=== PATIENT | female | born 1955 | race Caucasian/White ===

== ENCOUNTER 2016-07-13 10:09 | Emergency (ER) | payer OTHER ==
[2016-07-13 10:18] VITALS: BP 128/73
--- NOTE | 2016-07-13 10:27 | ED ---
Throat Pain/Nasal Congestion - HPI Summary HPI Summary: right ear pain for a few days that and there is tenderness of the ear. - History of Current Complaint Chief Complaint: UCEar Time Seen by Provider: 07/13/16 10:19 Hx Obtained From: Patient Onset/Duration: Lasting Days Severity: Moderate Associated Signs And Symptoms: Positive: Negative - Allergies/Home Medications Allergies/Adverse Reactions: Allergies Allergy/AdvReac Type Severity Reaction Status Date / Time Sulfa Drugs Allergy Hives Verified 07/13/16 10:18 PMH/Surg Hx/FS Hx/Imm Hx Endocrine/Hematology History: Denies: Hx Diabetes - Cancer History Hx Radiation Therapy: No - Surgical History Surgery Procedure, Year, and Place: hysterectomy 2000, ear tube on left Infectious Disease History: No Infectious Disease History: Denies: Traveled Outside the [place] in Last 30 Days - Family History Known Family History: Negative: Diabetes - Social History Lives: With Family Alcohol Use: None Substance Use Type: Reports: None Smoking Status (MU): Never Smoked Tobacco Review of Systems All Other Systems Reviewed And Are Negative: Yes Physical Exam Triage Information Reviewed: Yes Vital Signs On Initial Exam: Initial Vitals Temp Pulse Resp BP Pulse Ox 97.9 F 80 16 128/73 99 07/13/16 10:13 07/13/16 10:13 07/13/16 10:13 07/13/16 10:13 07/13/16 10:13 Vital Signs Reviewed: Yes Appearance: Positive: Well-Appearing, Well-Nourished Skin: Positive: Warm Eyes: Positive: Normal ENT: Positive: Other - right tragal tenderness. no swelling or redness of the ear. TM is pearly white.. Negative: Nasal congestion, Nasal drainage Neck: Positive: Supple Respiratory/Lung Sounds: Positive: Clear to Auscultation Cardiovascular: Positive: Normal Abdomen Description: Positive: Nontender Musculoskeletal: Positive: Normal. Negative: Edema Left, Edema Right Neurological: Positive: Sensory/Motor Intact, Alert, Oriented to Person Place, Time Psychiatric: Positive: Normal Diagnostics - Vital Signs Vital Signs Temp Pulse Resp BP Pulse Ox 07/13/16 10:13 97.9 F 80 16 128/73 99 - Laboratory Lab Statement: Any lab studies that have been ordered have been reviewed, and results considered in the medical decision making process. EENT Course/Dx - Course Course Of Treatment: right oe. no signs of cellulitis extending outward. - Diagnoses Provider Diagnoses: Otitis externa of right ear Discharge - Discharge Plan Condition: Good Disposition: HOME
== END 2016-07-13 10:37 | disposition home or self-care (01) ==
LOC: UCCORT 10:09
DX: H60.91 Unspecified otitis externa, right ear (principal); Z88.2 Allergy status to sulfonamides
CPT/HCPCS: 99212; G0463

== ENCOUNTER 2016-07-15 08:30 | Emergency (ER) | payer OTHER ==
[2016-07-15 09:11] VITALS: BP 112/74
--- NOTE | 2016-07-15 09:44 | UC ---
Ear Complaint HPI - HPI Summary HPI Summary: 61 yo female with right ear pain which has worsened since her visit here 2 days ago decreased hearing - History of Current Complaint Chief Complaint: UCEar Stated Complaint: EAR PAIN Time Seen by Provider: 07/15/16 09:23 Hx Obtained From: Patient Hx Last Menstrual Period: 2000 Onset/Duration: Gradual Onset, Lasting Days Severity Initially: Mild Severity Currently: Severe Pain Intensity: 8 Pain Scale Used: 0-10 Numeric Alleviating Factors: Nothing Associated Signs/Symptoms: Positive: Swelling @ - Allergies/Home Medications Allergies/Adverse Reactions: Allergies Allergy/AdvReac Type Severity Reaction Status Date / Time Sulfa Drugs Allergy Hives Verified 07/15/16 09:01 Home Medications: Home Medications Ibuprofen TAB* [Advil TAB*] 400 mg PO Q6H PRN 07/15/16 [History Confirmed ] PMH/Surg Hx/FS Hx/Imm Hx Previously Healthy: Yes Endocrine History Of: Denies: Diabetes Cancer History Of: Denies: Breast Cancer - Surgical History Surgical History: Yes Surgery Procedure, Year, and Place: hysterectomy 2000, ear tube on left - Family History Known Family History: Positive: Hypertension Negative: Diabetes - Social History Alcohol Use: None Substance Use Type: None Smoking Status (MU): Never Smoked Tobacco - Immunization History Most Recent Influenza Vaccination: April 2016 Review of Systems Constitutional: Negative Skin: Negative Eyes: Negative ENT: Ear Ache Respiratory: Negative Cardiovascular: Negative Gastrointestinal: Negative Genitourinary: Negative Motor: Negative Neurovascular: Negative Musculoskeletal: Negative Neurological: Negative Psychological: Negative All Other Systems Reviewed And Are Negative: Yes Physical Exam Triage Information Reviewed: Yes Appearance: Well-Appearing, No Pain Distress, Well-Nourished Vital Signs: Initial Vital Signs Temp 97.7 F 07/15/16 09:00 Pulse 66 07/15/16 09:00 Resp 18 07/15/16 09:00 BP 112/74 07/15/16 09:00 Pulse Ox 99 07/15/16 09:00 Vital Signs Reviewed: Yes Eyes: Positive: Conjunctiva Clear ENT: Positive: TMs normal, Other: - swollen right RAC/tragal tendernes/auricle not red. Negative: Hearing grossly normal - decreased right, Nasal congestion, Nasal drainage Dental: Negative: Gross Decay/Caries @ Neck: Positive: Supple, Nontender, No Lymphadenopathy Respiratory: Positive: Lungs clear, Normal breath sounds, No respiratory distress Cardiovascular: Positive: RRR. Negative: Tachycardia, Bradycardia Musculoskeletal: Positive: Strength Intact, ROM Intact Neurological: Positive: Alert Psychological Exam: Normal Skin Exam: Normal Procedures - Procedure Summary Procedure Summary: Insertion of [place] ear wick in Right auditory canal Ear Complaint Course/Dx - Differential Dx/Diagnosis Provider Diagnoses: right otitis externa Discharge - Discharge Plan Condition: Stable Disposition: HOME Prescriptions: Cephalexin CAP* [Keflex CAP*] 500 mg PO QID #28 cap traMADol TAB* [Ultram*] 50 mg PO Q6HR PRN #12 tab MDD 4 PRN Reason: Pain Patient Education Materials: Otitis Externa (ED) Forms: *Work Release Referrals: Julianne Lester MD [Primary Care Provider] - 4 Days Additional Instructions: an ear wick was inserted continue ear drops don't take tramadol and drive or work you may continue ibuprofen
== END 2016-07-15 09:44 | disposition home or self-care (01) ==
LOC: UCCORT 08:30
DX: H60.91 Unspecified otitis externa, right ear (principal); Z88.2 Allergy status to sulfonamides
CPT/HCPCS: 99211; G0463

== ENCOUNTER 2017-03-29 13:55 | Emergency (ER) | payer OTHER ==
[2017-03-29 15:09] VITALS: BP 125/66
[2017-03-29] MEDS ORDERED: Ibuprofen TAB* 600 MG PO ONE (15:43)
--- NOTE | 2017-03-29 15:43 | UC ---
Ear Complaint HPI - History of Current Complaint Chief Complaint: UCEar Stated Complaint: LEFT EAR COMPLAINT Time Seen by Provider: 03/29/17 15:33 Hx Last Menstrual Period: 2000 - Allergies/Home Medications Allergies/Adverse Reactions: Allergies Allergy/AdvReac Type Severity Reaction Status Date / Time Sulfa Drugs Allergy Hives Verified 03/29/17 15:09 PMH/Surg Hx/FS Hx/Imm Hx - Surgical History Surgical History: Yes Surgery Procedure, Year, and Place: hysterectomy 2000, ear tube on left - Family History Known Family History: Positive: Hypertension Negative: Diabetes - Social History Alcohol Use: None Substance Use Type: None Smoking Status (MU): Never Smoked Tobacco - Immunization History Most Recent Influenza Vaccination: April 2016 Physical Exam Vital Signs: Initial Vital Signs Temp 97.9 F 03/29/17 15:05 Pulse 77 03/29/17 15:05 Resp 16 03/29/17 15:05 BP 125/66 03/29/17 15:05 Pulse Ox 100 03/29/17 15:05
--- NOTE | 2017-04-02 07:16 | UC ---
Progress - Progress Note Progress Note: + MRSA please stop keflex will ERX Clinda 3 x per day x 10 days follow up with your pcp if not better
== END 2017-03-29 15:56 | disposition home or self-care (01) ==
LOC: UCCORT 13:55
DX: H93.92 Unspecified disorder of left ear (principal); Z88.2 Allergy status to sulfonamides; A49.02 Methicillin resistant Staphylococcus aureus infection, unspecified site
CPT/HCPCS: 87070; 87077; 87186; 87205; 87640; 87641; 99212; A9270-GY; G0463

== ENCOUNTER 2017-10-03 18:16 | Emergency (ER) | payer OTHER ==
--- OUTSIDE RECORDS SUMMARY | 2017-10-03 18:27 | XMS REPORT ---
:1955 External Reference #:[id number] Author Organization [facility] 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 Julianne Lester MD Primary Care Physician Unavailable Payers Type Date Identification Numbers Payment Provider Subscriber Commercial Policy Number: [id number] Lifetime Benefit Nehemias [employer] PayID: [id number] [address] [place] [address] Commercial Expires: 2016 Policy Number: Lifetime Benefit Nehemias Hyman [id number] [employer] Number: [id number] [address] PayID: [place] [address] Problems Date Description Provider Status Onset: 08/11/2012 Impacted Dinorah Fontana PA Active Onset: 09/19/2015 Adult health examination Julianne Lester MD Active Onset: 09/19/2015 Hyperlipidemia Julianne Lester MD Active Onset: 09/19/2015 Type II diabetes mellitus Julianne Lester MD Active uncontrolled Onset: 09/19/2015 History of polyp of colon Julianne Lester MD Active Onset: 09/19/2015 Other hypertrophic disorders of the Julianne Lester MD Active skin Onset: 09/19/2015 Inflamed seborrheic keratosis Julianne Lester MD Active Onset: 09/10/2016 Kidney stone Julianne Lester MD Active Onset: 09/10/2016 H/O: fracture Julianne Lester MD Active Onset: 09/10/2016 Otalgia Julianne Lester MD Active Onset: 09/10/2016 Vitamin D deficiency Julianne Lester MD Active Onset: 09/10/2016 Ganglion of hand Julianne Lester MD Active Onset: 09/19/2015 Mixed hyperlipidemia Julianne Lester MD Active Onset: 09/19/2015 Pure hypercholesterolemia Julianne Lester MD Active Onset: 08/01/2017 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 Work Status Retired Work Status Part-Time Hand Dominance Left-handed Hobbies Gardening Hobbies Reading Cigarette Use Never Smoked Cigarettes ETOH Use Denies alcohol use Smoking Patient denies history of smoking Recreational Drug Use Denies Drug Use Daily Caffeine Consumes on average 2 cups of regular coffee per day Allergies, Adverse Reactions, Alerts Date Description Reaction Status Severity Comments 05/14/2014 Sulfa Drugs active hives 05/07/2014 NKDA inactive Medications Medication Date Status Form Strength Qnty SIG Indications Ordering Provider Simvastatin 09/18/ Active Tablets 20mg 24tabs 1 by mouth E78.5 2015 2x/week MD Trevon Vitamin D / Active Tablets 1000Unit 1 by mouth Unknown 0000 every day Diclofenac / Active Tablets ER 100mg 30tabs take 1 tablet Jonathan Sodium ER 0000 24HR once daily Pom[place], with food M.D. Dok / Active Capsules 100mg take 1 Unknown 0000 capsule once daily if needed for constipation Diclofenac 06/28/ Hx Tablets ER 100mg 30tabs 1 by mouth Jonathan Sodium ER 2017 - 24HR every day Pompo, 08/01/ with food M.D. 2017 Fortamet 01/28/ Hx Tablets ER 500mg 60tabs take one E11.65 2016 24HR tablet by rufino Lester 2x/day MD Ni 05/14/ Hx Tablets ER 1000mg 90tabs 1 tab by E11.65 2015 - 24HR mouth once a Trevon 01/28/ day 2016 Metformin HCL 02/05/ Hx Tablets ER 1000mg 90tabs 1 tab by E11.65 Julianne ER (Mod) 2016 - 24HR mouth each Trevon 05/14/ morning note 2016 new dose Metformin HCL 09/18/ Hx Tablets ER 500mg 90tabs 1 tab by E11.65 Julianne ER (Osm) 2015 - 24HR mouth each Trevon 02/05/ morning 2016 Prednisone 12/15/ Hx Tablets 20mg 4tabs 1 by mouth Dat 2015 - every day MD Francisco 2015 No Active 05/07/ Hx Unknown Medications 2013 - 2013 Vitamin / Hx Tablets 1000Unit 1 by mouth Unknown D-1000 0000 - every day bid Maximum 09/18/ 2015 Ibuprofen / Hx Tablets 600mg take 1 tablet Unknown 0000 - three times a day 2016 Medications Administered in Office Medication Date Status Form Strength Qnty SIG Indications Ordering Provider Depomedrol 80 Administered Injection Lindy SChristal cervantes 017 KARISHMA Brasher Immunizations CPT Code Status Date Vaccine Lot # [id number] Given 05/25/2013 Tdap injection Vital Signs Date Vital Result Comment 09/05/2017 BP Systolic 139 mmHg BP Diastolic 82 mmHg Body Temperature 97.9 F Heart Rate 74 /min Respiratory Rate 18 /min Height 64 inches 5'4" Weight 255.00 lb BMI (Body Mass Index) 43.8 kg/m2 BSA (Body Surface Area) 2.17 m2 [place] body weight in kilograms 54 O2 % BldC Oximetry 98 % Pain Level 2 Surgical site 08/12/2017 BP Systolic 122 mmHg BP Diastolic 76 mmHg Body Temperature 97.2 F Heart Rate 76 /min Height 64 inches 5'4" Weight 260.00 lb BMI (Body Mass Index) 44.6 kg/m2 BSA (Body Surface Area) 2.19 m2 [place] body weight in kilograms 54 O2 % BldC Oximetry 96 % 08/06/2017 BP Systolic Sitting Left Arm 134 mmHg BP Diastolic Sitting Left Arm 83 mmHg Heart Rate 94 /min Height 64 inches 5'4" Weight 256.00 lb BMI (Body Mass Index) 43.9 kg/m2 BSA (Body Surface Area) 2.17 m2 [place] body weight in kilograms 54 08/02/2017 BP Systolic 130 mmHg BP Diastolic 82 mmHg 08/02/2017 BP Systolic 175 mmHg Very anxious BP Diastolic 89 mmHg Very anxious Body Temperature 98.2 F Heart Rate 71 /min Respiratory Rate 18 /min Height 64 inches 5'4" [place] body weight in kilograms 54 O2 % BldC Oximetry 98 % Pain Level 0 08/01/2017 BP Systolic 138 mmHg BP Diastolic 87 mmHg Body Temperature 98.4 F Heart Rate 84 /min Respiratory Rate 16 /min Height 64 inches 5'4" Weight 256.12 lb BMI (Body Mass Index) 44.0 kg/m2 BSA (Body Surface Area) 2.17 m2 [place] body weight in kilograms 54 O2 % BldC Oximetry 99 % Pain Level 0 06/28/2017 BP Systolic Sitting Left Arm 135 mmHg BP Diastolic Sitting Left Arm 88 mmHg Heart Rate 74 /min Height 64 inches 5'4" Weight 260.00 lb BMI (Body Mass Index) 44.6 kg/m2 BSA (Body Surface Area) 2.19 m2 [place] body weight in kilograms 54 04/25/2017 BP Systolic Sitting Right Arm 125 mmHg BP Diastolic Sitting Right Arm 84 mmHg BP Systolic Sitting Resting Right Arm 140 mmHg BP Diastolic Sitting Resting Right Arm 82 mmHg Heart Rate 72 /min Height 64 inches 5'4" Weight 257.00 lb BMI (Body Mass Index) 44.1 kg/m2 BSA (Body Surface Area) 2.18 m2 [place] body weight in kilograms 54 09/10/2016 BP Systolic Sitting Left Arm 120 mmHg BP Diastolic Sitting Left Arm 76 mmHg Body Temperature 98.3 F Heart Rate 66 /min Respiratory Rate 12 /min Height 64 inches 5'4" Weight 253.00 lb BMI (Body Mass Index) 43.4 kg/m2 BSA (Body Surface Area) 2.16 m2 [place] body weight in kilograms 54 02/06/2016 BP Systolic Sitting Left Arm 118 mmHg BP Diastolic Sitting Left Arm 74 mmHg Height 64.5 inches 5'4.50" Weight 254.38 lb BMI (Body Mass Index) 43.0 kg/m2 BSA (Body Surface Area) 2.18 m2 [place] body weight in kilograms 56 11/02/2015 Height 64.5 inches 5'4.50" 09/19/2015 BP Systolic 114 mmHg BP Diastolic 73 mmHg Heart Rate 73 /min Respiratory Rate 20 /min Height 64.5 inches 5'4.50" Weight 254.25 lb BMI (Body Mass Index) 43.0 kg/m2 BSA (Body Surface Area) 2.18 m2 05/14/2014 BP Systolic Sitting Right Arm 120 mmHg BP Diastolic Sitting Right Arm 80 mmHg Heart Rate 65 /min Respiratory Rate 18 /min Height 64 inches 5'4" Weight 250.00 lb BMI (Body Mass Index) 42.9 kg/m2 BSA (Body Surface Area) 2.15 m2 Results Test Date Test Result H/L Range Note Complete Blood Count 08/29/2017 WBC Num Bld Auto 10.6 10*3/uL High 4-10 RBC Num Bld Auto 4.47 10*6/uL 4.1-5.3 Hgb Bld-mCnc 13.2 g/dL 11.5-15.5 Hct VFr Bld Auto 38.4 % 36-45 MCV RBC Auto 85.8 fL 80-96 MCH RBC Qn Auto 29.5 pg 27-33 MCHC RBC Auto-mCnc 34.4 g/dL 32.0-36.0 RDW RBC Auto-Rto 13.6 % 11.5-14.5 Platelet Num Bld Auto 247 10*3/uL 150-400 Laboratory test finding 08/29/2017 Magnesium 2.0 mg/dL 1.6-2.6 Phosphorus 3.5 mg/dL 2.7-4.5 Basic Metabolic Panel 08/29/2017 Hco3 Ser-sCnc 24 mmol/L 22-29 Chloride SerPl-sCnc 106 mmol/L 96-108 Creat SerPl-mCnc 0.63 mg/dL 0.4-1.1 Glucose SerPl-mCnc 120 mg/dL High 65-110 Potassium SerPl-sCnc 4.1 mmol/L 3.3-5.1 Sodium SerPl-sCnc 143 mmol/L 133-145 BUN SerPl-mCnc 19 mg/dL 8-23 Anion Gap3 SerPl-sCnc 13 mmol/L 8-15 Osmolality SerPl Calc 299 mosm/kg 275-300 Creat/Urea nit SerPl 30 Calcium SerPl-mCnc 8.1 mg/dL Low 8.8-10.2 GFR/Bsa pred.non black SerPl MDRD-ArVRat >90 mL/min/1.73m2 >60 GFR/Bsa pred.black SerPl MDRD-ArVRat >90 mL/min/1.73m2 >60 Basic Metabolic Panel 08/29/2017 Anion Gap 13 mmol/L 8 - 15 BUN/Cre Ratio 30 1 Bicarbonate 24 mmol/L 22 - 29 Blood Urea Nitrogen 19 mg/dL 8 - 23 Calcium 8.1 mg/dL Low 8.8 - 10.2 Chloride 106 mmol/L 96 - 108 Creatinine 0.63 mg/dL 0.4 - 1.1 GFR 2008 CKD-Epi >90 >60 mL/min/1.73m2 GFR Non 2008 CDK-Epi >90 >60 mL/min/1.73m2 Glucose 120 mg/dL High 65 - 110 Osmolality, Asif 299 mosm/kg 275 - 300 Potassium 4.1 mmol/L 3.3 - 5.1 Sodium 143 mmol/L 133 - 145 CBC 08/29/2017 Hematocrit 38.4 % 36 - 45 Hemoglobin 13.2 g/dL 11.5 - 15.5 Mean Cell Hemoglobin 29.5 pg 27 - 33 Mean Cell Hgb Conc 34.4 g/dL 32.0 - 36.0 Mean Cell Volume 85.8 fL 80 - 96 Platelet Count 247 10*3/uL 150 - 400 Red Blood Cell 4.47 10*6/uL 4.1 - 5.3 Red Cell Dist Width 13.6 % 11.5 - 14.5 White Blood Cell 10.6 10*3/uL High 4 - 10 Crossmatch, Pat 08/28/2017 Abo/RH(D) A Pos Blood Component Type Leukoreduced Red Cells Blood Component Type Leukoreduced Red Cells Crossmatch Expiration 08/30/2017 Crossmatch Result Compatible Crossmatch Result Compatible Status Of Unit Rel From Alloc Status Of Unit Rel From Alloc Transfusion Status Ok To Transfuse Transfusion Status Ok To Transfuse Unit Division 0 1 Unit Division 0 1 Unit Number [id number] Unit Number [id number] Pat Crossmatch 08/28/2017 Blood Bank Cmnt Patient-Imp 08/30/2017 Abo + Rh Bld A POS CBC and Differential 08/28/2017 Abs Basophil 0.08 10*3/uL 0 - 0.2 Abs Eosinophil 0.04 10*3/uL 0 - 0.5 Abs Lymphocyte 1.12 10*3/uL Low 1.2 - 4.0 Abs Monocyte 0.16 10*3/uL 0 - 0.8 Abs Neutrophil 8.80 10*3/uL High 1.8 - 7.0 Basophil 1 % 0 - 2 Differential Type Automated Diff Eosinophil 0 % 0 - 5 Hematocrit 42.5 % 36 - 45 Hemoglobin 14.5 g/dL 11.5 - 15.5 Lymphocyte 11 % Low 13 - 52 Mean Cell Hemoglobin 29.6 pg 27 - 33 Mean Cell Hgb Conc 34.0 g/dL 32.0 - 36.0 Mean Cell Volume 86.9 fL 80 - 96 Monocyte 2 % 0 - 11 Neutrophil 86 % High 33 - 73 Nucleated Red Blood Cells 0 /100{WBCs} 0 - 0 Platelet Count 279 10*3/uL 150 - 400 Red Blood Cell 4.89 10*6/uL 4.1 - 5.3 Red Cell Dist Width 13.6 % 11.5 - 14.5 White Blood Cell 10.2 10*3/uL High 4 - 10 Basic Metabolic Panel 08/28/2017 Anion Gap 13 mmol/L 8 - 15 BUN/Cre Ratio 34 1 Bicarbonate 24 mmol/L 22 - 29 Blood Urea Nitrogen 25 mg/dL High 8 - 23 Calcium 9.1 mg/dL 8.8 - 10.2 Chloride 102 mmol/L 98 - 107 Creatinine 0.74 mg/dL 0.4 - 1.0 GFR 2008 CKD-Epi >90 >60 mL/min/1.73m2 GFR Non 2008 CDK-Epi >90 >60 mL/min/1.73m2 Glucose 173 mg/dL High 70 - 140 Osmolality, Asif 297 mosm/kg 275 - 300 Potassium 4.3 mmol/L 3.5 - 5.1 Sodium 139 mmol/L 136 - 145 Laboratory test finding 08/28/2017 Magnesium 2.0 mg/dL 1.6-2.4 1 Phosphorus 3.5 mg/dL 2.5-4.5 1 Basic Metabolic Panel 08/28/2017 Hco3 Ser-sCnc 24 mmol/L 22-29 1 Chloride SerPl-sCnc 102 mmol/L 98-107 1 Creat SerPl-mCnc 0.74 mg/dL 0.4-1.0 1 Glucose SerPl-mCnc 173 mg/dL High 70-140 1 Potassium SerPl-sCnc 4.3 mmol/L 3.5-5.1 1 Sodium SerPl-sCnc 139 mmol/L 136-145 1 BUN SerPl-mCnc 25 mg/dL High 8-23 1 Anion Gap3 SerPl-sCnc 13 mmol/L 8-15 1 Osmolality SerPl Calc 297 mosm/kg 275-300 1 Creat/Urea nit SerPl 34 1 Calcium SerPl-mCnc 9.1 mg/dL 8.8-10.2 1 GFR/Bsa pred.non black SerPl MDRD-ArVRat >90 mL/min/1.73m2 >60 1 GFR/Bsa pred.black SerPl MDRD-ArVRat >90 mL/min/1.73m2 >60 1 CBC + Diff, Plat Count 08/28/2017 WBC Num Bld Auto 10.2 10*3/uL High 4-10 1, 2 RBC Num Bld Auto 4.89 10*6/uL 4.1-5.3 1 Hgb Bld-mCnc 14.5 g/dL 11.5-15.5 1 Hct VFr Bld Auto 42.5 % 36-45 1 MCV RBC Auto 86.9 fL 80-96 1 MCH RBC Qn Auto 29.6 pg 27-33 1 MCHC RBC Auto-mCnc 34.0 g/dL 32.0-36.0 1 RDW RBC Auto-Rto 13.6 % 11.5-14.5 1 Platelet Num Bld Auto 279 10*3/uL 150-400 1 Differential method Bld Automated Diff 1 Neutrophils/leuk NFr Bld Auto 86 % High 33-73 1 Lymphocytes/leuk NFr Bld Auto 11 % Low 13-52 1 Monocytes/leuk NFr Bld Auto 2 % 0-11 1 Eosinophil/leuk NFr Bld Auto 0 % 0-5 1 Basophils/leuk NFr Bld Auto 1 % 0-2 1 Neutrophils Num Bld Auto 8.80 10*3/uL High 1.8-7.0 1 Lymphocytes Num Bld Auto 1.12 10*3/uL Low 1.2-4.0 1 Monocytes Num Bld Auto 0.16 10*3/uL 0-0.8 1 Eosinophil Num Bld Auto 0.04 10*3/uL 0-0.5 1 Basophils Num Bld Auto 0.08 10*3/uL 0-0.2 1 nRBC/100 WBC Bld Auto-Rto 0 /100{WBCs} 0-0 1 Poct glucose, docked 08/28/2017 Poc Glucose 170 mg/dL High 70 - 105 Laboratory test 08/28/2017 Glucose Poc 170 mg/dL High 70-105 finding Surgical Tissue 08/28/2017 Surgical Pathology Surgical Patholo 3 <SEE NOTE> Type And Screen 08/16/2017 Abo + Rh Bld A POS 4 Bld gp Ab Scn SerPl Ql NEG 4 Comprehensive Metabolic Panel 08/02/2017 Glucose 106 mg/dL 74-106 5 BUN 23 mg/dL High 7-18 5 Creatinine 0.7 mg/dL 0.6-1.3 5 Glom Filtration Rate, Estimate >60 mL/min >60 5 If >60 mL/min >60 5, 6 BUN/Creat 32.8 ratio 5 Sodium 139 mmol/L 136-145 5 Potassium 4.1 mmol/L 3.5-5.1 5 Chloride 105 mmol/L 98-107 5 Carbon Dioxide 26 mmol/L 21-32 5 Anion Gap 8 mEq/L 8-16 5 Calcium 9.4 mg/dL 8.5-10.1 5 Total Protein 7.9 g/dL 6.4-8.2 5 Albumin 3.9 g/dL 3.4-5.0 5 Globulin 4.0 g/dL 1.9-4.3 5 Alb/Glob 1.0 ratio 5 Bilirubin,Total 0.6 mg/dL 0.2-1.0 5 Sgot/Ast 24 U/L 15-37 5 SGPT/Alt 43 U/L 12-78 5 Alkaline Phosphatase 102 U/L 45-117 5 CBS W/Automated Diff 08/02/2017 White Blood Count 7.7 K/uL 3.1-10.7 5 Red Blood Count 5.10 M/uL 3.90-5.40 5 Hemoglobin 14.8 gm/dL 11.6-15.8 5 Hematocrit 43.8 % 36.0-46.1 5 Mean Cell Volume 85.9 fl 80.9-99.0 5 Mean Corpuscular HGB 29.0 pg 25.9-32.7 5 Mean Corpuscular HGB Conc 33.8 g/dL 30.8-34.3 5 Platelet Count 336 K/uL 155-360 5 Red Cell Distri Width SD 41.2 fl 3-47 5 Red Cell Distri Width %CV 13.4 % 11.7-14.4 5 Mean Platelet Volume 8.9 fL 8.9-12.4 5 Neut% 62.9 % 40.4-72.8 5 Lymph % 29.4 % 20.0-42.0 5 [place] % 5.7 % 4.3-13.2 5 Eo% 1.7 % 0.0-6.6 5 Bas% 0.3 % 0.0-1.1 5 Neut# 4.84 K/uL 1.8-7.0 5 Lymph # 2.26 K/uL 1.0-4.0 5 [place] # 0.44 K/uL 0.3-0.9 5 Eos # 0.13 K/uL 0.0-0.5 5 Baso # 0.02 K/uL 0.0-0.1 5 Anticoagulant Therapy? NO 5 Protime 08/02/2017 Protime 13.2 seconds 12.0-14.4 5 Inr 1.0 0.9-1.1 5, 7 Anticoagulant Therapy? NO 5 Act Partial Thrombo Time 08/02/2017 Act Partial Thrombo 31.4 seconds 23.4 -35.0 5 Time Anticoagulant Therapy? NO 5 Laboratory test finding 03/29/2017 Ear Culture/Gram stain SEE RESULT BELOW 8, 9 MRSA/S. aureus Ssti PCR SEE RESULT BELOW 8, 10 CBS W/Automated Diff 10/05/2016 White Blood Count 7.6 K/uL 3.1-10.7 11 Red Blood Count 5.13 M/uL 3.90-5.40 11 Hemoglobin 14.8 gm/dL 11.6-15.8 11 Hematocrit 44.7 % 36.0-46.1 11 Mean Cell Volume 87.1 fl 80.9-99.0 11 Mean Corpuscular HGB 28.8 pg 25.9-32.7 11 Mean Corpuscular HGB Conc 33.1 g/dL 30.8-34.3 11 Platelet Count 313 K/uL 150-400 11 Red Cell Distri Width SD 43.0 fl 3-47 11 Red Cell Distri Width %CV 13.6 % 11.7-14.4 11 Mean Platelet Volume 9.2 fL 8.9-12.4 11 Neut% 61.9 % 40.4-72.8 11 Lymph % 30.3 % 20.0-42.0 11 [place] % 4.5 % 4.3-13.2 11 Eo% 2.8 % 0.0-6.6 11 Bas% 0.5 % 0.0-1.1 11 Neut# 4.67 K/uL 1.8-7.0 11 Lymph # 2.29 K/uL 1.0-4.0 11 [place] # 0.34 K/uL 0.3-0.9 11 Eos # 0.21 K/uL 0.0-0.5 11 Baso # 0.04 K/uL 0.0-0.1 11 Glycohemoglobin A1c 10/05/2016 Glycohemoglobin (A1c) 6.4 % High 4.2-6.3 11, 12 eAG 137 mg/dL 11 Comprehensive Metabolic Panel 10/05/2016 Glucose 101 mg/dL 74-106 11 BUN 25 mg/dL High 7-18 11 Creatinine 0.7 mg/dL 0.6-1.3 11 Glom Filtration Rate, Estimate >60 mL/min >60 11 If >60 mL/min >60 11, 13 BUN/Creat 35.7 ratio 11 Sodium 141 mmol/L 136-145 11 Potassium 4.3 mmol/L 3.5-5.1 11 Chloride 106 mmol/L 98-107 11 Carbon Dioxide 26 mmol/L 21-32 11 Anion Gap 9 mEq/L 8-16 11 Calcium 9.2 mg/dL 8.5-10.1 11 Total Protein 7.8 g/dL 6.4-8.2 11 Albumin 4.1 g/dL 3.4-5.0 11 Globulin 3.7 g/dL 1.9-4.3 11 Alb/Glob 1.1 ratio 11 Bilirubin,Total 0.5 mg/dL 0.2-1.0 11 Sgot/Ast 11 U/L Low 15-37 11, 14 SGPT/Alt 25 U/L 12-78 11 Alkaline Phosphatase 95 U/L 45-117 11 Microalb/Creat Ratio,Random 10/05/2016 Microalbumin,Urine 17.7 mg/L < 20.0 11 Microalbumin/Creatinine Ratio 16.2 ug/mgCrt < 30.0 11 Urine Creatinine Conc 109 mg/dL 11 LDL Cholesterol Profile 10/05/2016 Cholesterol 215 mg/dL High <200 11 , 15 Triglycerides 101 mg/dL <150 11, 16 HDL Cholesterol 49 mg/dL >40 11, 17 LDL-Cholesterol 146 mg/dL < 100 11, 18 Laboratory test 10/05/2016 Vitamin D,25-Hydroxy 26.6 ng/mL Low 30.0-100.0 11, 19 finding Glycohemoglobin A1c 02/02/2016 Glycohemoglobin 6.6 % High 4.2-6.3 20 (A1c) eAG 143 mg/dL LDL Cholesterol Profile 02/02/2016 Cholesterol 176 mg/dL <200 21 Triglycerides 101 mg/dL <150 22 HDL Cholesterol 39 mg/dL Low >40 23 LDL-Cholesterol 117 mg/dL < 100 24 Glycohemoglobin A1c 09/05/2015 Glycohemoglobin (A1c) 6.7 % High 4.2-6.3 25 eAG 146 mg/dL Laboratory test finding 09/05/2015 Vitamin D,25-Hydroxy 26.5 ng/mL Low 30.0-100.0 26 Comprehensive Metabolic 09/05/2015 Glucose 114 mg/dL High 74-106 Panel BUN 18 mg/dL 7-18 Creatinine 0.6 mg/dL 0.6-1.3 Glom Filtration Rate, Estimate >60 mL/min >60 If >60 mL/min >60 27 BUN/Creat 30.0 ratio Sodium 139 mmol/L 136-145 Potassium 4.2 mmol/L 3.5-5.1 Chloride 107 mmol/L 98-107 Carbon Dioxide 24 mmol/L 21-32 Anion Gap 8 mEq/L 8-16 Calcium 8.7 mg/dL 8.5-10.1 Total Protein 7.3 g/dL 6.4-8.2 Albumin 3.7 g/dL 3.4-5.0 Globulin 3.6 g/dL 1.9-4.3 Alb/Glob 1.0 ratio Bilirubin,Total 0.5 mg/dL 0.2-1.0 Sgot/Ast 14 U/L Low 15-37 28 SGPT/Alt 29 U/L 12-78 Alkaline Phosphatase 90 U/L 45-117 CBC W/Automated Diff 09/05/2015 White Blood Count 7.9 K/uL 3.1-10.7 Red Blood Count 5.13 M/uL 3.90-5.40 Hemoglobin 14.6 gm/dL 11.6-15.8 Hematocrit 44.2 % 36.0-46.1 Mean Cell Volume 86.2 fl 80.9-99.0 Mean Corpuscular HGB 28.5 pg 25.9-32.7 Mean Corpuscular HGB Conc 33.0 g/dL 30.8-34.3 Platelet Count 281 K/uL 155-360 Red Cell Distri Width SD 41.5 fl 3-47 Red Cell Distri Width %CV 13.5 % 11.7-14.4 Mean Platelet Volume 9.1 fL 8.9-12.4 Neut% 62.9 % 40.4-72.8 Lymph % 28.2 % 17.0-46.1 [place] % 6.1 % 4.3-13.2 Eo% 2.4 % 0.0-6.6 Bas% 0.4 % 0.0-1.1 Neut# 4.94 K/uL 1.8-7.0 Lymph # 2.22 K/uL 1.8-7.0 [place] # 0.48 K/uL 0.3-0.9 Eos # 0.19 K/uL 0.0-0.5 Baso # 0.03 K/uL 0.0-0.1 LDL Cholesterol Profile 09/05/2015 Cholesterol 201 mg/dL High <200 29 Triglycerides 123 mg/dL <150 30 HDL Cholesterol 40 mg/dL >40 31 LDL-Cholesterol 136 mg/dL < 100 32 1 PHONE OR 2 Called to and read back by NATE ARMSTRONG AT 5E AT [id number] AT 1314 BY 1590 3 Surgical Pathology Report Name: NEHEMIAS GLOVER Collection Date: 08/28/2017 00:00 Received Date: 08/28/2017 13:25 Physician(s): CARLOS CHUN MAHMOUD Specimen(s) Received A: Left renal mass Clinical History Left renal mass. Diagnosis KIDNEY, LEFT, PARTIAL NEPHRECTOMY: RENAL CELL CARCINOMA. (See microscopic description) TYPE: Clear cell type. SIZE : 2.2 x 1.5 cm. WHO/ISUP GRADE: 1. NECROSIS: Not identified. SARCOMATOID DIFFERENTIATION: Not identified. RHABDOID DIFFERENTIATION: Not identified. LYMPH/VASCULAR INVASION: Not identified. EXTENSION INTO PERINEPHRIC FAT: Not identified. SOFT TISSUE MARGIN: Negative. RENAL PARENCHYMAL MARGIN: Negative. pT1a Nx /kmc Farhan Reina MD Electronically Signed By Evelyn Lee M.D., Attending Pathologist 08/30/2017 17:08:08 The attending pathologist named above attests that he/she has personally reviewed the relevant preparation(s) for the specimen, performed microscopic examination when indicated, and rendered the final diagnosis. Gross Description The specimen is received in formalin labeled with the patient's name "Nehemias Glover" and "left renal mass". It consists of a 12.2 gram, 3.4 x 2.8 x 1.2 cm wedge of kidney with a moderate amount of attached adipose tissue. The renal capsule is hamilton-pink, smooth and glistening and strips with ease. The margin is inked blue. The cut surface reveals a 2.2 x 1.5 x 1.2 cm multilocular, smooth walled cystic space, which contains yellow serous fluid. The cyst wall averages less than 0.1 cm in thickness and extends to within 0.2 cm of the closest blue inked margin and to within 0.1 cm of the overlying renal capsule, but does not grossly appear to be involving it. The remaining cut surface is hamilton-brown, glistening unremarkable renal parenchyma with no definitive medullary structures grossly identified. The specimen is sectioned and international account representative sections are submitted in four cassettes. TB/sparkle Microscopic Description Section show a multilocular cystic neoplasm with low-grade nuclei. There is no necrosis or sarcomatoid differentiation identified. The findings raises the possibility of "multilocular cystic renal neoplasm of low malignant potential". 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 This report may include one or more immunohistochemical stain results that use analyte specific reagents. All positive and negative controls have been reviewed by the attending pathologist and are satisfactory. The tests were developed and their performance characteristics determined by [facility] Pathology department. They have not been cleared or approved by the [place] Food and Drug Administration. The FDA has determined that such clearance or approval is not necessary. 4 DOS 08/28 5 D41.02 6 Note: Persistent reduction for 3 months or more in an eGFR <60 mL/min/1.73 m2 defines CKD. Patients with eGFR values >/=60 mL/min/1.73 m2 may also have CKD if evidence of persistent proteinuria is present. The original MDRD equation for estimated GFR is not valid for patients less than 18 years of age. Additional information may be found at www.kdoqi.org. 7 THERAPEUTIC INR RANGE: 2.0 - 3.0 DVT, Pulmonary embolus, prophylaxis against venous thrombosis or systemic embolization in high risk patients. 2.5 - 3.5 Mechanical heart valves 8 [id number] SEE RESULT BELOW Name: NEHEMIAS GLOVER Boogie : [address]: Yovany Badillo DO Acct: [id number] Unit: [id number] AGE: 61 Location: [facility] Re03/29/17 SEX: F Status: DEP ER SPEC: [id number] PABLO: 03/29/17-1542 [facility] DR: Marilia New NP REQ: [id number] RECD: 03/29/17-2002 STATUS: RES OT DR: Julianne Badillo DO _ SOURCE: EAR SPDESC: ORDERED: EAR Cult/GS COMMENTS: [id number] Procedure Result Reported Site Ear Culture PENDING Ear Gram Stain Final 03/30/17- 0742 ML 1+ Epithelial Cells No Neutrophils Observed 1+ Gram Positive Cocci 1+ Gram Positive Bacilli , resembling diptheroids 1+ Yeast * ML - MAIN LAB ([facility]) . END OF REPORT * ML=Testing performed at Main Lab DEPARTMENT OF PATHOLOGY, [address] [place] [address] Izaiah Walker M.D. Director [facility] # [id number] 10 SEE RESULT BELOW Name: NHEEMIAS GLOVER : [address]: Yovany Badillo DO Acct: [id number] Unit: [id number] AGE: 61 Location: [facility] Re03/29/17 SEX: F Status: DEP ER SPEC: [id number] PABLO: 03/29/17-15[address] [facility] [address]: Marilia New NP REQ: [id number] RECD: 03/29/17 STATUS: ALBERT PHILLIPS DR: Julianne Badillo DO _ SOURCE: EAR SPDESC: ORDERED: MRSA/SA SSTI, EAR Cult/GS COMMENTS: [id number] MRSA POSITIVE: Verbal to [id number] ([facility]) by [id number] at 0907 on 03/30/17. Results read back accurately. Procedure Result Reported Site MRSA/S. aureus SSTI PCR Final 03/30/17- 0903 ML Organism 1 MRSA POSITIVE Organism 2 S.AUREUS POSITIVE Ear Culture Final 04/01/17- 1104 ML Organism 1 MRSA Quantity 1+ Organism 2 NORMAL KATRINA Quantity 2+ 1. MRSA M.I.C. RX --------- ------ Penicillin >=0.5 R Clindamycin <=0.25 S Erythromycin >=8 R Gentamicin <=0.5 S Linezolid 2 S Nitrofurantoin <=16 S Oxacillin >=4 R * Quinupristin/Dalfopristin <=0.25 S Rifampin <=0.5 S Tetracycline <=1 S Doxycycline - Deduced S CONTINUED ON NEXT PAGE * ML=Testing performed at Main Lab DEPARTMENT OF PATHOLOGY, [address] [place] [address] Izaiah Walker M.D. Director [facility] # [id number] Patient: NEHEMIAS GLOVER [id number] (Continued) Specimen: [id number] Collected: 03/29/17-1541 Received: 03/29/17-2002 (Continued) Procedure Result Reported Site Ear Culture Final (continued) 04/01/17- 1104 1. MRSA (continued) M.I.C. RX --------- ------ * Minocycline - Deduced S Trimethoprim/Sulfamethoxazole <=10 S Vancomycin <=0.5 S Imipenem-Deduced R * Ampicillin/Sulbactam-Deduced R Cefazolin-Deduced R * These antibiotics are not available in the [facility] Formulary Contact the Microbiology Department for any additional antibiotic reporting. Ear Gram Stain Final 03/30/17- 42 ML 1+ Epithelial Cells No Neutrophils Observed 1+ Gram Positive Cocci 1+ Gram Positive Bacilli , resembling diptheroids 1+ Yeast * ML - MAIN LAB ([facility]) . END OF REPORT * ML=Testing performed at Main Lab DEPARTMENT OF PATHOLOGY, [address] [place] [address] Izaiah Walker M.D. Director [facility] # [id number] 11 E11.65 E78.5 E55.9 Z13.0 12 Elevated levels of HbA1c suggest the need for more aggressive treatment of glycemia. The [place] [employer] recommends that a primary goal of therapy should be a HbA1c of <7% and that physicians should re-evaluate the treatment regimen in patients with HbA1c values consistently >8%. 13 Note: Persistent reduction for 3 months or more in an eGFR <60 mL/min/1.73 m2 defines CKD. Patients with eGFR values >/=60 mL/min/1.73 m2 may also have CKD if evidence of persistent proteinuria is present. The original MDRD equation for estimated GFR is not valid for patients less than 18 years of age. Additional information may be found at www.kdoqi.org. 14 Values below the stated reference ranges of AST and ALT can be seen in normal populations. Clinical correlation is suggested. 15 Reference Guidelines*: Desirable: ........... < 200 mg/dL Borderline High: ..... 200-239 mg/dL High: ................ >=240 mg/dL * The National Cholesterol Education Program (NCEP) 16 Reference Guidelines*: Normal: ............. < 150 mg/dL Borderline High: .... 150-199 mg/dL High: ............... 200-499 mg/dL Very High: .......... > 500 mg/dL * Source: National Cholesterol Education Program (NCEP) 17 Reference Guidelines*: Low HDL: ..... < 40 mg/dL Normal: ..... 40-60 mg/dL Desirable: ... > 60 mg/dL *The National Cholesterol Education Program(NCEP) 18 Reference Guidelines*: Optimal:........... <100 mg/dL Near Optimal....... 100-129 mg/dL Borderline High.... 130-159 mg/dL High............... 160-189 mg/dL Very High.......... >=190 mg/dL * Source: National Cholesterol Education Program (NCEP) 19 Vitamin D deficiency has been defined by the [place] [employer] and an Endocrine Society practice guideline as a level of serum 25-OH vitamin D less than 20 ng/mL (1,2). The Endocrine Society went on to further define vitamin D insufficiency as a level between 21 and 29 ng/mL (2). 1. IOM ([place] [employer]). 2010. Dietary reference intakes for calcium and D. [place]: The National Academies Press. 2. Hung MF, Kana ABBASI, Petrona ALVARADO, et al. Evaluation, treatment, and prevention of vitamin D deficiency: an Endocrine Society clinical practice guideline. JCEM. 2010; 96(7):1911-30. Performed at: RN - [facility] [address] [id number] [employer] Specialist: Karine Guo MD, Phone: [phone] 20 Elevated levels of HbA1c suggest the need for more aggressive treatment of glycemia. The [place] Diabetes Association recommends that a primary goal of therapy should be a HbA1c of <7% and that physicians should re-evaluate the treatment regimen in patients with HbA1c values consistently >8%. 21 Reference Guidelines*: Desirable: ........... < 200 mg/dL Borderline High: ..... 200-239 mg/dL High: ................ >=240 mg/dL * The National Cholesterol Education Program (NCEP) 22 Reference Guidelines*: Normal: ............. < 150 mg/dL Borderline High: .... 150-199 mg/dL High: ............... 200-499 mg/dL Very High: .......... > 500 mg/dL * Source: National Cholesterol Education Program (NCEP) 23 Reference Guidelines*: Low HDL: ..... < 40 mg/dL Normal: ..... 40-60 mg/dL Desirable: ... > 60 mg/dL *The National Cholesterol Education Program(NCEP) 24 Reference Guidelines*: Optimal:........... <100 mg/dL Near Optimal....... 100-129 mg/dL Borderline High.... 130-159 mg/dL High............... 160-189 mg/dL Very High.......... >=190 mg/dL * Source: National Cholesterol Education Program (NCEP) 25 Elevated levels of HbA1c suggest the need for more aggressive treatment of glycemia. The [place] Diabetes Association recommends that a primary goal of therapy should be a HbA1c of <7% and that physicians should re-evaluate the treatment regimen in patients with HbA1c values consistently >8%. 26 Vitamin D deficiency has been defined by the [place] [employer] and an Endocrine Society practice guideline as a level of serum 25-OH vitamin D less than 20 ng/mL (1,2). The Endocrine Society went on to further define vitamin D insufficiency as a level between 21 and 29 ng/mL (2). 1. IOM ([place] [employer]). 2010. Dietary reference intakes for calcium and D. [place]: The National Academies Press. 2. Hung MF, Kana [place], Petrona ALVARADO, et al. Evaluation, treatment, and prevention of vitamin D deficiency: an Endocrine Society clinical practice guideline. JCEM. 2010; 96(7):1911-30. Performed at: RN - [facility] [address] [id number] [employer] Specialist: Karine Guo MD, Phone: [phone] 27 Note: Persistent reduction for 3 months or more in an eGFR <60 mL/min/1.73 m2 defines CKD. Patients with eGFR values >/=60 mL/min/1.73 m2 may also have CKD if evidence of persistent proteinuria is present. The original MDRD equation for estimated GFR is not valid for patients less than 18 years of age. Additional information may be found at www.kdoqi.org. 28 Values below the stated reference ranges of AST and ALT can be seen in normal populations. Clinical correlation is suggested. 29 Reference Guidelines*: Desirable: ........... < 200 mg/dL Borderline High: ..... 200-239 mg/dL High: ................ >=240 mg/dL * The National Cholesterol Education Program (NCEP) 30 Reference Guidelines*: Normal: ............. < 150 mg/dL Borderline High: .... 150-199 mg/dL High: ............... 200-499 mg/dL Very High: .......... > 500 mg/dL * Source: National Cholesterol Education Program (NCEP) 31 Reference Guidelines*: Low HDL: ..... < 40 mg/dL Normal: ..... 40-60 mg/dL Desirable: ... > 60 mg/dL *The National Cholesterol Education Program(NCEP) 32 Reference Guidelines*: Optimal:........... <100 mg/dL Near Optimal....... 100-129 mg/dL Borderline High.... 130-159 mg/dL High............... 160-189 mg/dL Very High.......... >=190 mg/dL * Source: National Cholesterol Education Program (NCEP) Procedures Date CPT Code Description Status Comment 06/28/201757658 Asp./Injection major joint Completed 03/05/2017 Mammogram Completed 08/13/201666972 Asp./Injection major joint Completed 02/28/2016 Mammogram Completed 01/06/2016 Mammogram Completed 01/06/2016 Bone Mineral Density Test Completed 09/19/2015 01213 Remove Impact Cerumen Completed Irrigati 09/19/2015 04118 Removal Skin Tags/Multi To 15 Completed 05/14/2014 78229 EKG-Tracing And Report Completed 05/07/2014 34704 ECHO Transthoracic Inc Completed Performance Continuous Electrocardio 05/07/2014 00846 Holter Monitor 24HR Completed Inter/Report 05/05/2014 46863 Echocardiogram Complete Completed 11/13/2012 55828 EKG Interpretation And Report Completed Only 07/08/2011 Colonoscopy Completed hyperplastic polyp; originally told q 5 yrs, last time Dr. Herrera said wait 5 more years , based on latest recommendations.. Occ. c/o blood toilet when straining 09/10/2008 56230 Radiology, Wrist Two Views Completed 12/08/2007 66299 Stress Test Physician Super Completed Only 12/08/2007 85824 Stress Test Interpre And Completed Report Only 12/06/2007 01956 EKG Interpretation And Report Completed Only Encounters Type Date Location Provider CPT E/M Dx Office Visit 08/12/2017 4:00p [place] [address] Z01.818 D41.02 E11.65 E78.5 N20.0 Office Visit 08/06/2017 4:15p Orthopaedic Office Lindy Brasher, 56595 M25.511 RPAC M75.31 Office Visit 08/02/2017 1:30p Urology Carlos Chun M.D. 74056 D41.02 N20.0 Office Visit 08/01/2017 8:30a Urology Carlos Chun M.D. 84062 N20.0 D41.02 Office Visit 06/28/2017 8:30a Orthopaedic Office Lindy Brasher, 99453 M25.511 RPAC M75.31 Office Visit 04/25/2017 9:45a [place] [address] E11.65 E78.5 H92.09 E55.9 Office Visit 09/10/2016 3:00p [place] [address] Z00.01 M67.442 E78.5 E11.65 N20.0 Z87.81 H92.09 E55.9 Office Visit 02/06/2016 4:00p [place] [address] E11.65 E78.5 Z86.010 Office Visit 09/19/2015 3:00p [place] [address] Z00.00 E78.5 E11.65 Z86.010 L91.8 H61.21 L82.0 Office Visit 05/14/2014 3:05p [place] [address] 786.50 427.60 785.1 Office Visit 05/06/2014 10:59a [place] [address] 786.50 785.1 Office Visit 09/10/2008 11:30a [place] [address] 813.44 E885.9 E849.0 Plan of Care Future Appointment(s):12/03/2017 4:00 pm - Carlos Chun M.D. 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 Doing well postoperatively. We'll plan to see her back in 3 months for follow-up and repeat a CT scan in 6 months.
[2017-10-03 18:36] VITALS: BP 136/76
--- NOTE | 2017-10-03 18:47 | UC ---
Ear Complaint HPI - HPI Summary HPI Summary: 62 year old female with ear concern. tubes put in ear 04/23. Left ear feels full and clogged. She thinks that the tube may have fallen out. She has decreased hearing in both ears. no fever. [ End ] - History of Current Complaint Chief Complaint: UCEar Stated Complaint: EAR(S) Time Seen by Provider: 10/03/17 18:44 Hx Obtained From: Patient Hx Last Menstrual Period: 2000 Onset/Duration: Gradual Onset Severity Initially: Moderate Severity Currently: Mild Pain Intensity: 0 Associated Signs/Symptoms: Positive: Hearing Loss - Allergies/Home Medications Allergies/Adverse Reactions: Allergies Allergy/AdvReac Type Severity Reaction Status Date / Time Sulfa (Sulfonamide Allergy Hives Verified 10/03/17 18:36 Antibiotics) Home Medications: Home Medications NK [No Home Medications Reported] 10/03/17 [History Confirmed 10/03/17] PMH/Surg Hx/FS Hx/Imm Hx Previously Healthy: Yes - Surgical History Surgical History: Yes Surgery Procedure, Year, and Place: hysterectomy 2000,. ear tube on left, Both ears tubes 04/23. Cyst removal left kidney - cancer - Family History Known Family History: Positive: Hypertension Negative: Diabetes - Social History Occupation: Employed Full-time Alcohol Use: None Substance Use Type: None Smoking Status (MU): Never Smoked Tobacco - Immunization History Most Recent Influenza Vaccination: April 2016 Review of Systems ENT: Ear Ache Is Patient Immunocompromised?: No All Other Systems Reviewed And Are Negative: Yes Physical Exam Triage Information Reviewed: Yes Appearance: Well-Appearing, No Pain Distress, Well-Nourished Vital Signs: Initial Vital Signs Temp 98.7 F 10/03/17 18:27 Pulse 81 10/03/17 18:27 Resp 14 10/03/17 18:27 BP 136/76 10/03/17 18:27 Pulse Ox 98 10/03/17 18:27 Vital Signs Reviewed: Yes Eye Exam: Normal ENT: Positive: Pharynx normal, TM dull - B/L WITH TUBE IN EAR. RIGHT IN PLACE . LEFT TUBE APPEARS more superficial but in ear still b/l effusion. no injection. no erythema. no purulence. Neck exam: Normal Respiratory Exam: Normal Cardiovascular Exam: Normal Musculoskeletal Exam: Normal Neurological Exam: Normal Psychological Exam: Normal Ear Complaint Course/Dx - Course Course Of Treatment: left ear has tube in canal but appers to be coming out and her hearing concern in that ear -- no infection noted. no swelling of ear canal. call florentino tomorrow for f/u - Differential Dx/Diagnosis Differential Diagnosis/HQI/PQRI: Mastoiditis, Otitis Externa, Otitis Media, Perforated TM, URI Provider Diagnoses: B/L ear effusion with ear tube in place Discharge - Sign-Out/Discharge Documenting (check all that apply): Discharge - Discharge Plan Condition: Good Disposition: HOME Patient Education Materials: Myringotomy with P.E. Tubes (DC) Referrals: Julianne Lester MD [Primary Care Provider] - 4 Days Additional Instructions: PLEASE CALL YOUR ENT DR ELLER TOMORROW FOR FOLLOW UP - Billing Disposition and Condition Condition: GOOD Disposition: HOME
== END 2017-10-03 19:04 | disposition home or self-care (01) ==
LOC: UCCORT 18:16
DX: H93.8X3 Other specified disorders of ear, bilateral (principal); Z96.29 Presence of other otological and audiological implants; Z88.2 Allergy status to sulfonamides
CPT/HCPCS: 99211; G0463

== ENCOUNTER 2018-10-10 11:27 | Emergency (ER) | payer OTHER ==
--- OUTSIDE RECORDS SUMMARY | 2018-10-10 11:47 | XMS REPORT | Continuity of Care Document ---
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 Active Onset: 02/03/2018 Other seborrheic keratosis Julianne Lester MD Active Family History Date Family Member(s) Observation Comments General Non Contributory Father due to Accident, Tree Fell On Him () - 65 Mother Heart Disease 90 Mother due to Natural Causes () Children 2 First Daughter Peptic Ulcers First Daughter No Current Problems Second Daughter IBS Second Daughter No Current Problems Siblings 1 First Sister Hypertension First Sister Hypercholesterolemia First Sister Anxiety Social History Type Date Description Comments Sex Unknown Education Highest level completed, 12th grade Marital Status since age 41 Lives With Alone Home Environment Lives Alone Diet Healthy, Well Balanced Pets 1 cat Pets 1 dog 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 Hand Dominance Left-handed Hobbies Gardening Hobbies Reading Hobbies walking; taking care of [place] Tobacco Use Start: Unknown Never Smoked Cigarettes Smokeless Tobacco Never Used Smokeless Tobacco ETOH Use Denies alcohol use Tobacco Use Start: Unknown Patient denies history of smoking Recreational Drug Use Denies Drug Use Smoking Status Reviewed: 09/10/18 Patient denies history of smoking Allergies, Adverse Reactions, Alerts Date Description Reaction Status Severity Comments 05/14/2014 Sulfa Drugs Active hives 05/07/2014 NKDA Inactive Medications Medication Date Status Form Strength Qnty SIG Indications Ordering Provider Metformin HCL 01/28/20 Active Tablets 500mg 90tab take one tab E11.65 Trevon, 18 s by mouth with MD Julianne supper Simvastatin 09/19/19 Active Tablets 20mg 36tab 1 by mouth E78.5 Trevon , 16 s 3x/week MD Julianne Vitamin D Active Tablets 2000Unit 2 by mouth Unknown 00 daily. Macrobid 03/20/20 Hx Capsules 100mg 14cap 1 tab by Jarret 18 - s [facility] for 7 M.D. 18 days Citroma 02/14/20 Hx Solution 1.745GM/3 296ml drink 1 [email or web address] Thrasher 18 - 0ML bottle at , [place], 03/18/20 12pm 18 (noon)the day before the procedure Dulcolax 02/14/20 Hx Tablets 5mg 4tabs 4 tablets Z86.010 Price 18 - DR taken a 8pm , [place], 04/21/20 the day 18 before the procedure Moviprep 02/14/20 Hx Solution 100gm 1unit as directed Deni Thrasher 18 - Rec s , [place], 04/21/20 18 Vitamin B-12 02/04/20 Hx Tablets 5000mcg 1 by mouth Trevon 18 - Sub every day MD Julianne 02/04/20 18 Vitamin D3 02/04/20 Hx Capsules 5000Unit 1 by mouth rTevon 18 - every day MD Julianne 09/11/19 19 Diclofenac 06/28/20 Hx Tablets 100mg 30tab 1 by mouth Pompo, Sodium ER 17 - ER 24HR s every day Jonathan, 08/01/19 with food M.D. 18 Fortamet 01/29/20 Hx Tablets 500mg 60tab take one E11.65 Trevon 17 - ER 24HR s tablet by MD Julianne Unknown mouth 2x/day Fortamet 05/14/20 Hx Tablets 1000mg 90tab 1 tab by E11.Sherly Lester 16 - ER 24HR s mouth once a MD Julianne 01/29/20 day 17 Metformin HCL 02/06/20 Hx Tablets 1000mg 90tab 1 tab by E11.65 LOKI Lester (Mod) 16 - ER 24HR s mouth at MD Julianne 01/28/20 supper 18 Metformin HCL 09/19/19 Hx Tablets 500mg 90tab 1 tab by E11.65 LOKI Lester (Osm) 16 - ER 24HR s mouth each MD Julianne 02/06/20 morning 16 Prednisone 12/16/19 Hx Tablets 20mg 4tabs 1 by mouth Daugherty, 15 - every day MD Francisco 09/19/19 16 No Active 05/07/20 Hx Unknown Medications 14 - 05/14/20 14 Vitamin Hx Tablets 1000Unit 1 by mouth Unknown D-1000 00 - every day bid Maximum 09/19/19 Strength 16 Vitamin D Hx Tablets 1000Unit 1 by mouth Unknown 00 - every day 02/04/20 18 Ibuprofen Hx Tablets 600mg take 1 tablet Unknown 00 - three times a 06/28/20 day 17 Diclofenac Hx Tablets 100mg 30tab take 1 tablet Pompo, Sodium ER 00 - ER 24HR s once daily Jonathan, 12/04/19 with food M.D. 18 Dok Hx Capsules 100mg take 1 Unknown 00 - capsule once 12/04/19 daily if 18 needed for constipation Medications Administered in Office Medication Date Status Form Strength Qnty SIG Indications Ordering Provider Methylprednisolone 06/28 Administered Injection Sameera Lindy (Depomedrol) 80mg S., [facility] injection Immunizations CPT Code Status Date Vaccine Lot # [id number] Given 05/25/2013 Tdap injection Vital Signs Date Vital Result Comment 09/10/2018 6:00pm BP Systolic Sitting Left Arm 124 mmHg BP Diastolic Sitting Left Arm 78 mmHg Heart Rate 88 /min Respiratory Rate 18 /min Height 64.5 inches 5'4.50" Weight 257.00 lb BMI (Body Mass Index) 43.4 kg/m2 BSA (Body Surface Area) 2.19 m2 Mountain body weight in kilograms 56 kg 07/29/2018 4:00pm BP Systolic 150 mmHg BP Diastolic 86 mmHg Body Temperature 96.9 F Tympanic Heart Rate 84 /min Respiratory Rate 16 /min Weight 261.25 lb O2 % BldC Oximetry 98 % Pain Level 0 04/21/2018 4:27pm BP Systolic 150 mmHg BP Diastolic 90 mmHg 04/21/2018 4:10pm BP Systolic 167 mmHg BP Diastolic 97 mmHg 04/21/2018 3:54pm BP Systolic 174 mmHg BP Diastolic 96 mmHg Body Temperature 98.0 F Heart Rate 81 /min Respiratory Rate 18 /min Height 64.5 inches 5'4.50" Weight 254.00 lb BMI (Body Mass Index) 42.9 kg/m2 BSA (Body Surface Area) 2.18 m2 Mountain body weight in kilograms 56 kg O2 % BldC Oximetry 98 % Pain Level 5 surgical soreness 03/18/2018 4:27pm BP Systolic 159 mmHg 139/85 w lg cuff BP Diastolic 89 mmHg 139/85 w lg cuff Body Temperature 98.5 F Heart Rate 83 /min Respiratory Rate 14 /min Height 64.5 inches 5'4.50" Weight 253.38 lb BMI (Body Mass Index) 42.8 kg/m2 BSA (Body Surface Area) 2.17 m2 Mountain body weight in kilograms 56 kg O2 % BldC Oximetry 97 % Pain Level 0 02/13/2018 9:18am BP Systolic Sitting Left Arm 130 mmHg BP Diastolic Sitting Left Arm 84 mmHg Heart Rate 74 /min Respiratory Rate 18 /min Height 64.5 inches 5'4.50" Weight 255.00 lb BMI (Body Mass Index) 43.1 kg/m2 BSA (Body Surface Area) 2.18 m2 Mountain body weight in kilograms 56 kg 02/03/2018 8:55am BP Systolic 120 mmHg BP Diastolic 78 mmHg Heart Rate 80 /min Respiratory Rate 18 /min Height 64.5 inches 5'4.50" Weight 255.00 lb BMI (Body Mass Index) 43.1 kg/m2 BSA (Body Surface Area) 2.18 m2 Mountain body weight in kilograms 56 kg O2 % BldC Oximetry 98 % 12/03/2017 3:59pm BP Systolic 143 mmHg BP Diastolic 82 mmHg Body Temperature 99.7 F Heart Rate 81 /min Respiratory Rate 16 /min Height 64 inches 5'4" Weight 255.38 lb BMI (Body Mass Index) 43.8 kg/m2 BSA (Body Surface Area) 2.17 m2 Mountain body weight in kilograms 54 kg O2 % BldC Oximetry 96 % Pain Level 0 09/05/2017 3:35pm BP Systolic 139 mmHg BP Diastolic 82 mmHg Body Temperature 97.9 F Heart Rate 74 /min Respiratory Rate 18 /min Height 64 inches 5'4" Weight 255.00 lb BMI (Body Mass Index) 43.8 kg/m2 BSA (Body Surface Area) 2.17 m2 Mountain body weight in kilograms 54 kg O2 % BldC Oximetry 98 % Pain Level 2 Surgical site 08/12/2017 4:20pm BP Systolic 122 mmHg BP Diastolic 76 mmHg Body Temperature 97.2 F Heart Rate 76 /min Height 64 inches 5'4" Weight 260.00 lb BMI (Body Mass Index) 44.6 kg/m2 BSA (Body Surface Area) 2.19 m2 Mountain body weight in kilograms 54 kg O2 % BldC Oximetry 96 % 08/06/2017 4:30pm BP Systolic Sitting Left Arm 134 mmHg BP Diastolic Sitting Left Arm 83 mmHg Heart Rate 94 /min Height 64 inches 5'4" Weight 256.00 lb BMI (Body Mass Index) 43.9 kg/m2 BSA (Body Surface Area) 2.17 m2 Mountain body weight in kilograms 54 kg 08/02/2017 2:20pm BP Systolic 130 mmHg BP Diastolic 82 mmHg 08/02/2017 1:27pm BP Systolic 175 mmHg Very anxious BP Diastolic 89 mmHg Very anxious Body Temperature 98.2 F Heart Rate 71 /min Respiratory Rate 18 /min Height 64 inches 5'4" Mountain body weight in kilograms 54 kg O2 % BldC Oximetry 98 % Pain Level 0 08/01/2017 8:22am BP Systolic 138 mmHg BP Diastolic 87 mmHg Body Temperature 98.4 F Heart Rate 84 /min Respiratory Rate 16 /min Height 64 inches 5'4" Weight 256.12 lb BMI (Body Mass Index) 44.0 kg/m2 BSA (Body Surface Area) 2.17 m2 Mountain body weight in kilograms 54 kg O2 % BldC Oximetry 99 % Pain Level 0 06/28/2017 8:56am BP Systolic Sitting Left Arm 135 mmHg BP Diastolic Sitting Left Arm 88 mmHg Heart Rate 74 /min Height 64 inches 5'4" Weight 260.00 lb BMI (Body Mass Index) 44.6 kg/m2 BSA (Body Surface Area) 2.19 m2 Mountain body weight in kilograms 54 kg 04/25/2017 10:02am BP Systolic Sitting Right Arm 125 mmHg BP Diastolic Sitting Right Arm 84 mmHg BP Systolic Sitting Resting Right Arm 140 mmHg BP Diastolic Sitting Resting Right Arm 82 mmHg Heart Rate 72 /min Height 64 inches 5'4" Weight 257.00 lb BMI (Body Mass Index) 44.1 kg/m2 BSA (Body Surface Area) 2.18 m2 Mountain body weight in kilograms 54 kg 09/10/2016 2:54pm BP Systolic Sitting Left Arm 120 mmHg BP Diastolic Sitting Left Arm 76 mmHg Body Temperature 98.3 F Heart Rate 66 /min Respiratory Rate 12 /min Height 64 inches 5'4" Weight 253.00 lb BMI (Body Mass Index) 43.4 kg/m2 BSA (Body Surface Area) 2.16 m2 Mountain body weight in kilograms 54 kg 02/06/2016 4:56pm BP Systolic Sitting Left Arm 118 mmHg BP Diastolic Sitting Left Arm 74 mmHg Height 64.5 inches 5'4.50" Weight 254.38 lb BMI (Body Mass Index) 43.0 kg/m2 BSA (Body Surface Area) 2.18 m2 Mountain body weight in kilograms 56 kg 11/02/2015 4:15pm Height 64.5 inches 5'4.50" 09/19/2015 3:13pm BP Systolic 114 mmHg BP Diastolic 73 mmHg Heart Rate 73 /min Respiratory Rate 20 /min Height 64.5 inches 5'4.50" Weight 254.25 lb BMI (Body Mass Index) 43.0 kg/m2 BSA (Body Surface Area) 2.18 m2 05/14/2014 3:48pm BP Systolic Sitting Right Arm 120 mmHg BP Diastolic Sitting Right Arm 80 mmHg Heart Rate 65 /min Respiratory Rate 18 /min Height 64 inches 5'4" Weight 250.00 lb BMI (Body Mass Index) 42.9 kg/m2 BSA (Body Surface Area) 2.15 m2 Results Test Date Facility Test Result H/L Range Note Urine Dipstick 09/10/2018 [facility]a Leuko - Negative Ua Nitrite - Negative Ua Urobilinogen .2 0.2 - 1.0 E.U./dL Ua Protein - Negative Ua PH 5 Low 6.5-7.5 Ua Blood - Negative Ua Specific [place] 1.020 1.010-1.030 Ua Ketones SMALL Negative Ua Bilirubin - Negative Ua Glucose - Negative CBC W/Automated Diff 08/28/2018 [facility] White Blood 7.9 K/uL N 3.1-10.[address] [place] [address] [phone] Red Blood Count 4.71 M/uL N 3.90-5.40 Hemoglobin 13.4 gm/dL N 11.6-15.8 Hematocrit 41.1 % N 36.0-46.1 Mean Cell Volume 87.3 fl N 80.9-99.0 Mean Corpuscular HGB 28.5 pg N 25.9-32.7 Mean Corpuscular HGB Conc 32.6 g/dL N 30.8-34.3 Platelet Count 246 K/uL N 155-360 Red Cell Distri Width SD 41.7 fl N 36-47 Red Cell Distri Width %CV 13.5 % N 11.7-14.4 Mean Platelet Volume 8.9 fL N 8.9-12.4 Neut% 67.5 % N 40.4-72.8 Lymph % 23.3 % N 20.0-42.0 Rogers % 7.1 % N 4.3-13.2 Eo% 1.8 % N 0.0-6.6 Bas% 0.3 % N 0.0-1.1 Neut# 5.37 K/uL N 1.8-7.0 Lymph # 1.85 K/uL N 1.0-4.0 Rogers # 0.56 K/uL N 0.3-0.9 Eos # 0.14 K/uL N 0.0-0.5 Baso # 0.02 K/uL N 0.0-0.1 Basic Metabolic Panel 08/28/2018 [facility] Glucose 135 mg/dL High 74-[address] [place] [address] [phone] BUN 22 mg/dL High 7-18 Creatinine 0.7 mg/dL N 0.6-1.3 Glom Filtration Rate, Estimate >60 mL/min >60 If >60 mL/min >60 2 BUN/Creat 31.4 ratio Sodium 139 mmol/L N 136-145 Potassium 3.7 mmol/L N 3.5-5.1 Chloride 108 mmol/L High 98-107 Carbon Dioxide 23 mmol/L N 21-32 Anion Gap 8 mEq/L N 8-16 Calcium 8.5 mg/dL N 8.5-10.1 Blood Culture 08/27/2018 [facility] Blood Culture NO GROWTH: FINAL [address] Aerobic <SEE NOTE> [place] [address] [phone] Blood Culture Anaerobic NO GROWTH: FINAL <SEE NOTE> 4 Blood Culture 08/27/2018 [facility] Blood Culture NO GROWTH: FINAL [address] Aerobic <SEE NOTE> [place] [address] [phone] Blood Culture Anaerobic NO GROWTH: FINAL <SEE NOTE> 6 Ua RFX Micro & Culture 08/27/2018 [facility] Urine Color YELLOW Yellow [address] [place] [address] [phone] Urine Clarity CLEAR Clear Urine Glucose - Dipstick NEGATIVE mg/dL Negative Urine Bilirubin - Dipstick NEGATIVE Negative Urine Ketone NEGATIVE mg/dL Negative Urine Specific [place] 1.025 N 1.010-1.030 Urine Blood TRACE Negative Urine PH 6.0 Low 6.5-7.5 Urine Protein - Dipstick NEGATIVE mg/dL Negative Urine Urobilinogen - Dipstick 0.2 E.U./dL N 0.2-1.0 Urine Nitrite - Dipstick NEGATIVE Negative Urine Leuk Esterase NEGATIVE Negative Source: URINE, CLEAN CAT <SEE NOTE> 8 Complete Blood Count 04/17/2018 [facility] WBC Num Bld Auto 11.1 10*3/uL High 4-10 RBC Num Bld Auto 4.30 10*6/uL 4.1-5.3 Hgb Bld-mCnc 12.4 g/dL 11.5-15.5 Hct VFr Bld Auto 37.4 % 36-45 MCV RBC Auto 86.9 fL 80-96 MCH RBC Qn Auto 28.7 pg 27-33 MCHC RBC Auto-mCnc 33.0 g/dL 32.0-36.0 RDW RBC Auto-Rto 13.6 % 11.5-14.5 Platelet Num Bld Auto 238 10*3/uL 150-400 Basic Metabolic Panel 04/17/2018 [facility] Hco3 Ser-sCnc 22 mmol/L 22 -29 Chloride SerPl-sCnc 108 mmol/L High 98-107 Creat SerPl-mCnc 0.99 mg/dL 0.4-1.0 Glucose SerPl-mCnc 114 mg/dL 70-140 Potassium SerPl-sCnc 3.8 mmol/L 3.5-5.1 Sodium SerPl-sCnc 140 mmol/L 136-145 BUN SerPl-mCnc 20 mg/dL 8-23 Anion Gap3 SerPl-sCnc 10 mmol/L 8-15 Osmolality SerPl Calc 293 mosm/kg 275-300 Creat/Urea nit SerPl 20 Calcium SerPl-mCnc 8.2 mg/dL Low 8.8-10.2 GFR/Bsa pred.non black SerPl MDRD-ArVRat 60 mL/min/1.73m2 Low >60 GFR/Bsa pred.black SerPl MDRD-ArVRat 70 mL/min/1.73m2 >60 Laboratory test 04/16/2018 [facility] Glucose Poc 127 mg/dL High 70- 105 finding Laboratory test 04/16/2018 [facility] Glucose Poc 118 mg/dL High 70- 105 finding Complete Blood 04/16/2018 [facility] WBC Num Bld 14.7 10*3/uL High 4- 10 Count Auto RBC Num Bld Auto 4.74 10*6/uL 4.1-5.3 Hgb Bld-mCnc 13.6 g/dL 11.5-15.5 Hct VFr Bld Auto 40.9 % 36-45 MCV RBC Auto 86.2 fL 80-96 MCH RBC Qn Auto 28.7 pg 27-33 MCHC RBC Auto-mCnc 33.2 g/dL 32.0-36.0 RDW RBC Auto-Rto 13.3 % 11.5-14.5 Platelet Num Bld Auto 272 10*3/uL 150-400 Basic Metabolic Panel 04/16/2018 [facility] Hco3 Ser-sCnc 21 mmol/L Low 22-29 Chloride SerPl-sCnc 105 mmol/L 98-107 Creat SerPl-mCnc 0.65 mg/dL 0.4-1.0 Glucose SerPl-mCnc 129 mg/dL 70-140 Potassium SerPl-sCnc 4.5 mmol/L 3.5-5.1 Sodium SerPl-sCnc 139 mmol/L 136-145 BUN SerPl-mCnc 15 mg/dL 8-23 Anion Gap3 SerPl-sCnc 13 mmol/L 8-15 Osmolality SerPl Calc 291 mosm/kg 275-300 Creat/Urea nit SerPl 23 Calcium SerPl-mCnc 8.7 mg/dL Low 8.8-10.2 GFR/Bsa pred.non black SerPl MDRD-ArVRat >90 mL/min/1.73m2 >60 GFR/Bsa pred.black SerPl MDRD-ArVRat >90 mL/min/1.73m2 >60 Laboratory test finding 04/16/2018 [facility] Magnesium 2.0 mg/dL 1.6- 2.4 Phosphorus 3.4 mg/dL 2.5-4.5 Laboratory test 04/15/2018 [facility] Glucose Poc 163 mg/dL High 70- 105 finding Laboratory test 04/15/2018 [facility] Glucose Poc 125 mg/dL High 70- 105 finding Complete Blood 04/15/2018 [facility] WBC Num Bld 14.5 10*3/uL High 4- 10 Count Auto RBC Num Bld Auto 5.17 10*6/uL 4.1-5.3 Hgb Bld-mCnc 15.0 g/dL 11.5-15.5 Hct VFr Bld Auto 45.2 % High 36-45 MCV RBC Auto 87.5 fL 80-96 MCH RBC Qn Auto 29.1 pg 27-33 MCHC RBC Auto-mCnc 33.3 g/dL 32.0-36.0 RDW RBC Auto-Rto 13.2 % 11.5-14.5 Platelet Num Bld Auto 248 10*3/uL 150-400 Basic Metabolic Panel 04/15/2018 [facility] Hco3 Ser-sCnc 22 mmol/L 22 -29 Chloride SerPl-sCnc 102 mmol/L 98-107 Creat SerPl-mCnc 0.70 mg/dL 0.4-1.0 Glucose SerPl-mCnc 130 mg/dL 70-140 Potassium SerPl-sCnc 4.4 mmol/L 3.5-5.1 Sodium SerPl-sCnc 138 mmol/L 136-145 BUN SerPl-mCnc 18 mg/dL 8-23 Anion Gap3 SerPl-sCnc 14 mmol/L 8-15 Osmolality SerPl Calc 290 mosm/kg 275-300 Creat/Urea nit SerPl 26 Calcium SerPl-mCnc 9.1 mg/dL 8.8-10.2 GFR/Bsa pred.non black SerPl MDRD-ArVRat >90 mL/min/1.73m2 >60 GFR/Bsa pred.black SerPl MDRD-ArVRat >90 mL/min/1.73m2 >60 Laboratory test finding 04/15/2018 [facility] Magnesium 1.9 mg/dL 1.6- 2.4 Phosphorus 3.9 mg/dL 2.5-4.5 Laboratory test finding 04/15/2018 [facility] Glucose Poc 141 mg/dL High 70-105 Type And Screen 04/15/2018 [facility] Abo + Rh Bld A POS Bld gp Ab Scn SerPl Ql NEG Blood Bank Cmnt Patient-Imp Performed at [place] <SEE NOTE> 9 Complete Blood Count 04/08/2018 [facility] WBC Num Bld Auto 8.7 10*3/uL 4-10 RBC Num Bld Auto 5.21 10*6/uL 4.1-5.3 Hgb Bld-mCnc 15.1 g/dL 11.5-15.5 Hct VFr Bld Auto 45.2 % High 36-45 MCV RBC Auto 86.7 fL 80-96 MCH RBC Qn Auto 29.0 pg 27-33 MCHC RBC Auto-mCnc 33.4 g/dL 32.0-36.0 RDW RBC Auto-Rto 13.5 % 11.5-14.5 Platelet Num Bld Auto 304 10*3/uL 150-400 Prothrombin Time 04/08/2018 [facility] Prothrombin time 12.4 s Low 12.5 -14.9 Inr PPP 0.93 10 Laboratory test 04/08/2018 [facility] Part Thrombo T 32.5 s 24.0-34.0 finding (PTT) Basic Metabolic 04/08/2018 [facility] Hco3 Ser-sCnc 25 mmol/L 22-29 Panel Chloride SerPl-sCnc 100 mmol/L 98-107 Creat SerPl-mCnc 0.67 mg/dL 0.4-1.0 Glucose SerPl-mCnc 85 mg/dL 70-140 Potassium SerPl-sCnc 4.6 mmol/L 3.5-5.1 Sodium SerPl-sCnc 140 mmol/L 136-145 BUN SerPl-mCnc 23 mg/dL 8-23 Anion Gap3 SerPl-sCnc 15 mmol/L 8-15 Osmolality SerPl Calc 293 mosm/kg 275-300 Creat/Urea nit SerPl 34 Calcium SerPl-mCnc 10.1 mg/dL 8.8-10.2 GFR/Bsa pred.non black SerPl MDRD-ArVRat >90 mL/min/1.73m2 >60 GFR/Bsa pred.black SerPl MDRD-ArVRat >90 mL/min/1.73m2 >60 Urine Culture 03/18/2018 [facility] Urine ESCHERICHIA COLI Abnormal [address] [place] [address] [phone] Quantity > 100,000 CFU/mL 12 Urine Culture URETHRAL KATRINA Quantity 10,000 - 50,000 <SEE NOTE> 13 Escherichia Coli 03/18/2018 [facility] Nitrofurantoin <=[address] [place] [address] [phone] Trimethoprim/Sulfamethoxazole <=20 S Ampicillin 4 S Cefazolin <=4 S Ampicillin/Sulbactam <=2 S Ciprofloxacin <=0.25 S Piperacillin/Tazobactam <=4 S Ceftazidime <=1 S Ceftriaxone <=1 S Cefepime <=1 S Levofloxacin <=0.12 S Imipenem <=0.25 S Gentamicin <=1 S Tobramycin <=1 S Urine Dipstick 03/18/2018 [facility] Ua Color yellow Yellow Ua Clarity clear Clear Ua Leuko 125 High Negative Ua Nitrite positive Negative Ua Urobilinogen 17 High 0.2 - 1.0 E.U./dL Ua Protein 0.3 High Negative Ua PH 5.0 Low 6.5-7.17 Ua Blood 200 High Negative Ua Specific [place] 1.030 1.010-1.030 Ua Ketones 0.5 High Negative Ua Bilirubin neg Negative Ua Glucose neg Negative Capillary blood 03/12/2018 N2N/CCD Import Capillary blood 116 High 70- 110 glucose glucose measurement measurement by by glucometer glucometer (mass/volume) Microalb/Creat 02/03/2018 [facility] Microalbumin,Urine < 5.0 < 20.0 14 Ratio,Random [address] mg/[place] [address] [phone] Microalbumin/Creatinine Ratio TNP ug/mgCrt < 30.0 15 Urine Creatinine Conc 83 mg/dL Urine Dipstick 02/03/2018 [facility]house Ua Color yellow Yellow Ua Clarity clear Clear Ua Leuko neg Negative Ua Nitrite neg Negative Ua Urobilinogen 0.2 0.2 - 1.0 E.U./dL Ua Protein neg Negative Ua PH 6.0 Low 6.5-7.5 Ua Blood neg Negative Ua Specific [place] 1.020 1.010-1.030 Ua Ketones neg Negative Ua Bilirubin neg Negative Ua Glucose neg Negative Glycohemoglobin 01/17/2018 [facility] Glycohemoglobin 6.6 % High 4.2-6.3 16, A1c [address] (A1c) 17 [place] [address] [phone] eAG 143 mg/dL LDL Cholesterol Profile 01/17/2018 [facility] Cholesterol 171 mg/dL <[address] [place], [place] [id number] [phone] Triglycerides 141 mg/dL <150 19 HDL Cholesterol 41 mg/dL >40 20 LDL-Cholesterol 102 mg/dL < 100 21 Laboratory 01/17/2018 [facility] Vitamin 31.4 30.0-100.0 22 test finding [address] D,25-Hydroxy ng/[place] [address] [phone] Basic 01/17/2018 [facility] Glucose 116 High 74-[address] mg/dL Panel [place], [place] [id number] [phone] BUN 31 mg/dL High 7-18 Creatinine 0.9 mg/dL N 0.6-1.3 Glom Filtration Rate, Estimate >60 mL/min >60 If >60 mL/min >60 23 BUN/Creat 34.4 ratio Sodium 141 mmol/L N 136-145 Potassium 4.2 mmol/L N 3.5-5.1 Chloride 108 mmol/L High 98-107 Carbon Dioxide 23 mmol/L N 21-32 Anion Gap 10 mEq/L N 8-16 Calcium 9.0 mg/dL N 8.5-10.1 CBC 08/29/2017 N2N/CCD Import Hematocrit 38.4 % 36 - 45 Hemoglobin [...] Cell 10.6 10*3/uL High 4 - 10 Basic Metabolic Panel 08/29/2017 N2N/CCD Import Anion Gap 13 mmol/L 8 - 15 [...] 5.1 Sodium 143 mmol/L 133 - 145 Basic Metabolic Panel 08/29/2017 [facility] Hco3 Ser-sCnc 24 mmol/L 22 -29 Chloride SerPl-sCnc 106 mmol/L 96-108 Creat SerPl-mCnc [...] GFR/Bsa pred.black SerPl MDRD-ArVRat >90 mL/min/1.73m2 >60 Laboratory test finding 08/29/2017 [facility] Magnesium 2.0 mg/dL 1.6- 2.6 Phosphorus 3.5 mg/dL 2.7-4.5 Complete Blood Count 08/29/2017 [facility] WBC Num Bld Auto 10.6 10*3/uL High 4-10 RBC Num Bld Auto 4.47 10*6/uL 4.1-5.3 Hgb Bld-mCnc 13.2 g/dL 11.5-15.5 Hct VFr Bld Auto 38.4 % 36-45 MCV RBC Auto 85.8 fL 80-96 MCH RBC Qn Auto 29.5 pg 27-33 MCHC RBC Auto-mCnc 34.4 g/dL 32.0-36.0 RDW RBC Auto-Rto 13.6 % 11.5-14.5 Platelet Num Bld Auto 247 10*3/uL 150-400 Surgical Tissue 08/28/2017 [facility] Surgical Surgical 24 Pathology Patholo <SEE NOTE> Laboratory test 08/28/2017 [facility] Glucose Poc 170 mg/dL High 70- 105 finding Poct glucose, 08/28/2017 N2N/CCD Import Poc Glucose 170 mg/dL High 70 - 105 docked CBC + Diff, 08/28/2017 [facility] WBC Num Bld 10.2 10*3/uL High 4-10 25, 26 Plat Count Auto RBC Num Bld Auto 4.89 10*6/uL 4.1-5.3 Hgb Bld-mCnc 14.5 g/dL 11.5-15.5 Hct VFr Bld Auto 42.5 % 36-45 MCV RBC Auto 86.9 fL 80-96 MCH RBC Qn Auto 29.6 pg 27-33 MCHC RBC Auto-mCnc 34.0 g/dL 32.0-36.0 RDW RBC Auto-Rto 13.6 % 11.5-14.5 Platelet Num Bld Auto 279 10*3/uL 150-400 Differential method Bld Automated Diff Neutrophils/leuk NFr Bld Auto 86 % High 33-73 Lymphocytes/leuk NFr Bld Auto 11 % Low 13-52 Monocytes/leuk NFr Bld Auto 2 % 0-11 Eosinophil/leuk NFr Bld Auto 0 % 0-5 Basophils/leuk NFr Bld Auto 1 % 0-2 Neutrophils Num Bld Auto 8.80 10*3/uL High 1.8-7.0 Lymphocytes Num Bld Auto 1.12 10*3/uL Low 1.2-4.0 Monocytes Num Bld Auto 0.16 10*3/uL 0-0.8 Eosinophil Num Bld Auto 0.04 10*3/uL 0-0.5 Basophils Num Bld Auto 0.08 10*3/uL 0-0.2 nRBC/100 WBC Bld Auto-Rto 0 /100{WBCs} 0-0 Basic Metabolic Panel 08/28/2017 [facility] Hco3 Ser-sCnc 24 mmol/L 22 -29 Chloride SerPl-sCnc 102 mmol/L 98-107 Creat SerPl-mCnc 0.74 mg/dL 0.4-1.0 Glucose SerPl-mCnc 173 mg/dL High 70-140 Potassium SerPl-sCnc 4.3 mmol/L 3.5-5.1 Sodium SerPl-sCnc 139 mmol/L 136-145 BUN SerPl-mCnc 25 mg/dL High 8-23 Anion Gap3 SerPl-sCnc 13 mmol/L 8-15 Osmolality SerPl Calc 297 mosm/kg 275-300 Creat/Urea nit SerPl 34 Calcium SerPl-mCnc 9.1 mg/dL 8.8-10.2 GFR/Bsa pred.non black SerPl MDRD-ArVRat >90 mL/min/1.73m2 >60 GFR/Bsa pred.black SerPl MDRD-ArVRat >90 mL/min/1.73m2 >60 Laboratory test finding 08/28/2017 [facility] Magnesium 2.0 mg/dL 1.6- 2.4 Phosphorus 3.5 mg/dL 2.5-4.5 Basic Metabolic Panel 08/28/2017 N2N/CCD Import Anion Gap 13 mmol/L 8 - 15 [...] 5.1 Sodium 139 mmol/L 136 - 145 CBC and Differential 08/28/2017 N2N/CCD Import Abs Basophil 0.08 10*3/uL 0 - 0.2 [...] Cell 10.2 10*3/uL High 4 - 10 Pat Crossmatch 08/28/2017 [facility] Blood Bank Cmnt Patient-Imp 2017 Abo + Rh Bld A POS Crossmatch, Pat 08/28/2017 N2N/CCD Import Abo/RH(D) A Pos Blood Component Type Leukoreduced Red Cells Blood Component Type Leukoreduced Red Cells Crossmatch Expiration 08/30/2017 Crossmatch Result Compatible Crossmatch Result Compatible Status Of Unit Rel From Alloc Status Of Unit Rel From Alloc Transfusion Status Ok To Transfuse Transfusion Status Ok To Transfuse Unit Division 0 1 Unit Division 0 1 Unit Number [id number] Unit Number [id number] Type And Screen 08/16/2017 [facility] Abo + Rh Bld A POS 27 Bld gp Ab Scn SerPl Ql NEG Comprehensive Metabolic 08/02/2017 [facility] Glucose 106 mg/dL N 74-106 28 Panel [address] [place], [place] [id number] [phone] BUN 23 mg/dL High 7-18 Creatinine 0.7 mg/dL N 0.6-1.3 Glom Filtration Rate, Estimate >60 mL/min >60 If >60 mL/min >60 29 BUN/Creat 32.8 ratio Sodium 139 mmol/L N 136-145 Potassium 4.1 mmol/L N 3.5-5.1 Chloride 105 mmol/L N 98-107 Carbon Dioxide 26 mmol/L N 21-32 Anion Gap 8 mEq/L N 8-16 Calcium 9.4 mg/dL N 8.5-10.1 Total Protein 7.9 g/dL N 6.4-8.2 Albumin 3.9 g/dL N 3.4-5.0 Globulin 4.0 g/dL N 1.9-4.3 Alb/Glob 1.0 ratio Bilirubin,Total 0.6 mg/dL N 0.2-1.0 Sgot/Ast 24 U/L N 15-37 SGPT/Alt 43 U/L N 12-78 Alkaline Phosphatase 102 U/L N 45-117 CBS W/Automated Diff 08/02/2017 [facility] White Blood 7.7 K/uL N 3.1-10.[address] [place] [address] [phone] Red Blood Count 5.10 M/uL N 3.90-5.40 Hemoglobin 14.8 gm/dL N 11.6-15.8 Hematocrit 43.8 % N 36.0-46.1 Mean Cell Volume 85.9 fl N 80.9-99.0 Mean Corpuscular HGB 29.0 pg N 25.9-32.7 Mean Corpuscular HGB Conc 33.8 g/dL N 30.8-34.3 Platelet Count 336 K/uL N 155-360 Red Cell Distri Width SD 41.2 fl N 3-47 Red Cell Distri Width %CV 13.4 % N 11.7-14.4 Mean Platelet Volume 8.9 fL N 8.9-12.4 Neut% 62.9 % N 40.4-72.8 Lymph % 29.4 % N 20.0-42.0 Rogers % 5.7 % N 4.3-13.2 Eo% 1.7 % N 0.0-6.6 Bas% 0.3 % N 0.0-1.1 Neut# 4.84 K/uL N 1.8-7.0 Lymph # 2.26 K/uL N 1.0-4.0 Rogers # 0.44 K/uL N 0.3-0.9 Eos # 0.13 K/uL N 0.0-0.5 Baso # 0.02 K/uL N 0.0-0.1 Anticoagulant Therapy? NO Protime 08/02/2017 [facility] Protime 13.2 seconds N 12.0-14.[address] [place] [address] [phone] Inr 1.0 N 0.9-1.1 30 Anticoagulant Therapy? NO Act Partial 08/02/2017 [facility] Act Partial 31.4 seconds N 23.4-35.[address] Time [address] [place] [place] [address] [phone] Anticoagulant Therapy? NO Laboratory test 03/29/2017 [facility] Ear Culture/ Gram SEE RESULT 31, 32 finding [phone] stain BELOW MRSA/S. aureus Ssti PCR SEE RESULT BELOW 33 Glycohemoglobin 10/05/2016 [facility] Glycohemoglobin 6.4 % High 4.2-6.3 34, A1c [address] (A1c) 35 [place], [place] [id number] [phone] eAG 137 mg/dL Comprehensive Metabolic 10/05/2016 [facility] Glucose 101 mg/dL N 74-[address] [place], [place] [address] [phone] BUN 25 mg/dL High 7-18 Creatinine 0.7 mg/dL N 0.6-1.3 Glom Filtration Rate, Estimate >60 mL/min >60 If >60 mL/min >60 36 BUN/Creat 35.7 ratio Sodium 141 mmol/L N 136-145 Potassium 4.3 mmol/L N 3.5-5.1 Chloride 106 mmol/L N 98-107 Carbon Dioxide 26 mmol/L N 21-32 Anion Gap 9 mEq/L N 8-16 Calcium 9.2 mg/dL N 8.5-10.1 Total Protein 7.8 g/dL N 6.4-8.2 Albumin 4.1 g/dL N 3.4-5.0 Globulin 3.7 g/dL N 1.9-4.3 Alb/Glob 1.1 ratio Bilirubin,Total 0.5 mg/dL N 0.2-1.0 Sgot/Ast 11 U/L Low 15-37 37 SGPT/Alt 25 U/L N 12-78 Alkaline Phosphatase 95 U/L N 45-117 Microalb/Creat 10/05/2016 [facility] Microalbumin,Urine 17.7 < 20.0 Ratio,Random [address] mg/[place] [address] [phone] Microalbumin/Creatinine Ratio 16.2 ug/mgCrt < 30.0 Urine Creatinine Conc 109 mg/dL LDL Cholesterol 10/05/2016 [facility] Cholesterol 215 mg/dL High <200 [address] [place], [place] [id number] [phone] Triglycerides 101 mg/dL <150 39 HDL Cholesterol 49 mg/dL >40 40 LDL-Cholesterol 146 mg/dL < 100 41 Laboratory 10/05/2016 [facility] Vitamin 26.6 Low 30.0-100.0 42 test finding [address] D,25-Hydroxy ng/[place] [address] [phone] CBS 10/05/2016 [facility] White Blood 7.6 K/uL N 3.1-10.7 W/Automated [address] [place] [place] [address] [phone] Red Blood Count 5.13 M/uL N 3.90-5.40 Hemoglobin 14.8 gm/dL N 11.6-15.8 Hematocrit 44.7 % N 36.0-46.1 Mean Cell Volume 87.1 fl N 80.9-99.0 Mean Corpuscular HGB 28.8 pg N 25.9-32.7 Mean Corpuscular HGB Conc 33.1 g/dL N 30.8-34.3 Platelet Count 313 K/uL N 150-400 Red Cell Distri Width SD 43.0 fl N 3-47 Red Cell Distri Width %CV 13.6 % N 11.7-14.4 Mean Platelet Volume 9.2 fL N 8.9-12.4 Neut% 61.9 % N 40.4-72.8 Lymph % 30.3 % N 20.0-42.0 Rogers % 4.5 % N 4.3-13.2 Eo% 2.8 % N 0.0-6.6 Bas% 0.5 % N 0.0-1.1 Neut# 4.67 K/uL N 1.8-7.0 Lymph # 2.29 K/uL N 1.0-4.0 Rogers # 0.34 K/uL N 0.3-0.9 Eos # 0.21 K/uL N 0.0-0.5 Baso # 0.04 K/uL N 0.0-0.1 LDL Cholesterol Profile 02/02/2016 [facility] Cholesterol 176 mg/dL <[address] [place] [address] [phone] Triglycerides 101 mg/dL <150 44 HDL Cholesterol 39 mg/dL Low >40 45 LDL-Cholesterol 117 mg/dL < 100 46 Glycohemoglobin 02/02/2016 [facility] Glycohemoglobin 6.6 % High 4.2-6.3 [address] (A1c) [place], [place] [id number] [phone] eAG 143 mg/dL LDL Cholesterol 09/05/2015 [facility] Cholesterol 201 mg/dL High <200 [address] [place], [place] [address] [phone] Triglycerides 123 mg/dL <150 49 HDL Cholesterol 40 mg/dL >40 50 LDL-Cholesterol 136 mg/dL < 100 51 Glycohemoglobin 09/05/2015 [facility] Glycohemoglobin 6.7 % High 4.2-6.3 [address] (A1c) [place] [address] [phone] eAG 146 mg/dL Laboratory test 09/05/2015 [facility] Vitamin 26.5 Low 30.0-100.0 [address] D,25-Hydroxy ng/mL [place], [place] [address] [phone] Comprehensive 09/05/2015 [facility] Glucose 114 High 74-106 Metabolic Panel [address] mg/[place] [address] [phone] BUN 18 mg/dL 7-18 Creatinine 0.6 mg/dL 0.6-1.3 Glom Filtration Rate, Estimate >60 mL/min >60 If >60 mL/min >60 54 BUN/Creat 30.0 ratio Sodium 139 mmol/L 136-145 Potassium 4.2 mmol/L 3.5-5.1 Chloride 107 mmol/L 98-107 Carbon Dioxide 24 mmol/L 21-32 Anion Gap 8 mEq/L 8-16 Calcium 8.7 mg/dL 8.5-10.1 Total Protein 7.3 g/dL 6.4-8.2 Albumin 3.7 g/dL 3.4-5.0 Globulin 3.6 g/dL 1.9-4.3 Alb/Glob 1.0 ratio Bilirubin,Total 0.5 mg/dL 0.2-1.0 Sgot/Ast 14 U/L Low 15-37 55 SGPT/Alt 29 U/L 12-78 Alkaline Phosphatase 90 U/L 45-117 CBC W/Automated Diff 09/05/2015 [facility] White Blood 7.9 K/uL 3.1-10.[address] [place] [address] [phone] Red Blood Count 5.13 M/uL 3.90-5.40 Hemoglobin [...] % 40.4-72.8 Lymph % 28.2 % 17.0-46.1 Rogers % 6.1 % 4.3-13.2 Eo% 2.4 % 0.0-6.6 Bas% 0.4 % 0.0-1.1 Neut# 4.94 K/uL 1.8-7.0 Lymph # 2.22 K/uL 1.8-7.0 Rogers # 0.48 K/uL 0.3-0.9 Eos # 0.19 K/uL 0.0-0.5 Baso # 0.03 K/uL 0.0-0.1 1 ABD PAIN, DIVERT WITH AIR 2 Note: Persistent reduction for 3 months or more in an eGFR <60 mL/min/1.73 m2 defines CKD. Patients with eGFR values >/=60 mL/min/1.73 m2 may also have CKD if evidence of persistent proteinuria is present. The original MDRD equation for estimated GFR is not valid for patients less than 18 years of age. Additional information may be found at www.kdoqi.org. 3 NO GROWTH: FINAL REPORT 4 NO GROWTH: FINAL REPORT 5 NO GROWTH: FINAL REPORT 6 NO GROWTH: FINAL REPORT 7 ?KIDNEY INFECTION EXTREME PAIN LEFT SIDE 8 URINE, CLEAN CATCH 9 Performed at [place], [place] 10 Routine intensity oral anticoagulation INR is typically 2.0-3.0. Target INR must be clinically individualized. 11 ESCHERICHIA COLI 12 > 100,000 CFU/mL 13 10,000 - 50,000 CFU/mL 14 E11.65 15 Valid ratio could not be calculated due to non-numeric result. 16 E11.65,E78.5,E55.9 17 Elevated levels of HbA1c suggest the need for more aggressive treatment of glycemia. The [place] Diabetes Association recommends that a primary goal of therapy should be a HbA1c of <7% and that physicians should re-evaluate the treatment regimen in patients with HbA1c values consistently >8%. 18 Reference Guidelines*: Desirable: ........... < 200 mg/dL Borderline High: ..... 200-239 mg/dL High: ................ >=240 mg/dL * The National Cholesterol Education Program (NCEP) 19 Reference Guidelines*: Normal: ............. < 150 mg/dL Borderline High: .... 150-199 mg/dL High: ............... 200-499 mg/dL Very High: .......... > 500 mg/dL * Source: National Cholesterol Education Program (NCEP) 20 Reference Guidelines*: Low HDL: ..... < 40 mg/dL Normal: ..... 40-60 mg/dL Desirable: ... > 60 mg/dL *The National Cholesterol Education Program(NCEP) 21 Reference Guidelines*: Optimal:........... <100 mg/dL Near Optimal....... 100-129 mg/dL Borderline High.... 130-159 mg/dL High............... 160-189 mg/dL Very High.......... >=190 mg/dL * Source: National Cholesterol Education Program (NCEP) 22 Vitamin D deficiency has been defined by the [place] [employer] and an Endocrine Society practice guideline as a level of serum 25-OH vitamin D less than 20 ng/mL (1,2). The Endocrine Society went on to further define vitamin D insufficiency as a level between 21 and 29 ng/mL (2). 1. IOM ([place] [employer]). 2010. Dietary reference intakes for calcium and D. [place]: The National Academies Press. 2. Hung MF, Kana NC, Petrona ALVARADO, et al. Evaluation, treatment, and prevention of vitamin D deficiency: an Endocrine Society clinical practice guideline. JCEM. 2010; 96(7):1911-30. Performed at: RN - [facility] [address] [id number] [employer] Maker: Karine Guo MD, Phone: [phone] 23 Note: Persistent reduction for 3 months or more in an eGFR <60 mL/min/1.73 m2 defines CKD. Patients with eGFR values >/=60 mL/min/1.73 m2 may also have CKD if evidence of persistent proteinuria is present. The original MDRD equation for estimated GFR is not valid for patients less than 18 years of age. Additional information may be found at www.kdoqi.org. 24 Surgical Pathology Report Name: NEHEMIAS GLOVER Collection [...] RENAL PARENCHYMAL MARGIN: Negative. pT1a Nx /kmc Farhna Reina MD Electronically Signed By Evelyn Lee [...] grossly identified. The specimen is sectioned and patient access representative sections are submitted in four cassettes. [...] developed and their performance characteristics determined by [facility] Pathology department. They have not been cleared or approved by the US Food and Drug Administration. The FDA has determined that such clearance or approval is not necessary. 25 PHONE OR 26 Called to and read back by NATE ARMSTRONG AT 5E AT X4589 AT 1317 BY 1595 27 DOS 08/28 28 D41.02 29 Note: Persistent reduction for 3 months or more in an eGFR <60 mL/min/1.73 m2 defines CKD. Patients with eGFR values >/=60 mL/min/1.73 m2 may also have CKD if evidence of persistent proteinuria is present. The original MDRD equation for estimated GFR is not valid for patients less than 18 years of age. Additional information may be found at www.kdoqi.org. 30 THERAPEUTIC INR RANGE: 2.0 - 3.0 DVT, Pulmonary embolus, prophylaxis against venous thrombosis or systemic embolization in high risk patients. 2.5 - 3.5 Mechanical heart valves 31 [id number] 32 SEE RESULT BELOW Name: NEHEMIAS GLOVER : [address]: Yovany Badillo DO Acct: [id number] Unit: [id number] AGE: 61 Location: [facility] Re03/29/17 SEX: F Status: DEP ER SPEC: [id number] PABLO: 03/29/17-[address] [facility] [address]: Marilia New NP REQ: [id number] RECD: 03/29/17 STATUS: RES OTHR DR: Julianne Badillo DO _ SOURCE: EAR SPDESC: ORDERED: EAR Cult/GS COMMENTS: [id number] Procedure Result Reported Site Ear Culture PENDING Ear Gram Stain Final 09/23/17- 0742 ML 1+ Epithelial Cells No Neutrophils Observed 1+ Gram Positive Cocci 1+ Gram Positive Bacilli , resembling diptheroids 1+ Yeast * ML - MAIN LAB (PSYCHIATRIC1) . END OF REPORT * ML=Testing performed at Main Lab DEPARTMENT OF PATHOLOGY, [address] [place] [address] Izaiah Walker M.D. Director [facility] # [id number] 33 SEE RESULT BELOW Name: GLOVERNEHEMIAS : [address]: Yovany Badillo DO Acct: [id number] Unit: [id number] AGE: 61 Location: [facility] Re03/29/17 SEX: F Status: DEP ER SPEC: [id number] PABLO: 03/29/17-[address] [facility] [address]: Marilia New NP REQ: [id number] RECD: 03/29/17 STATUS: COMP [facility] DR: Julianne Badillo DO _ SOURCE: EAR SPDESC: ORDERED: MRSA/SA SSTI, EAR Cult/GS COMMENTS: [id number] MRSA POSITIVE: Verbal to [id number] (CORT) by [id number] at 0907 on 03/30/17. Results read back [...] performed at Main Lab DEPARTMENT OF PATHOLOGY, [address] [place] [address] Izaiah Walker M.D. Director [facility] # [id number] Patient: NEHEMIAS GLOVER [id number] (Continued) Specimen: [id number] Collected: 03/29/17 Received: 03/29/17 (Continued) Procedure Result Reported Site Ear Culture Final (continued) 04/01/17- 1104 1. MRSA (continued) M.I.C. RX --------- ------ * Minocycline - Deduced S Trimethoprim/Sulfamethoxazole <=10 S Vancomycin <=0.5 S Imipenem-Deduced R * Ampicillin/Sulbactam-Deduced R Cefazolin-Deduced R * These antibiotics are not available in the [facility] Formulary Contact the Microbiology Department for any additional antibiotic reporting. Ear Gram Stain Final 03/30/17741 ML 1+ Epithelial Cells No Neutrophils Observed 1+ Gram Positive Cocci 1+ Gram Positive Bacilli , resembling diptheroids 1+ Yeast * ML - MAIN LAB (PSC1) . END OF REPORT * ML=Testing performed at Main Lab DEPARTMENT OF PATHOLOGY, [address] [place] [address] Izaiah Walker M.D. Director [facility] # [id number] 34 E11.65 E78.5 E55.9 Z13.0 35 Elevated levels of HbA1c suggest the need for more aggressive treatment of glycemia. The [place] Diabetes Association recommends that a primary goal of therapy should be a HbA1c of <7% and that physicians should re-evaluate the treatment regimen in patients with HbA1c values consistently >8%. 36 Note: Persistent reduction for 3 months or more in an eGFR <60 mL/min/1.73 m2 defines CKD. Patients with eGFR values >/=60 mL/min/1.73 m2 may also have CKD if evidence of persistent proteinuria is present. The original MDRD equation for estimated GFR is not valid for patients less than 18 years of age. Additional information may be found at www.kdoqi.org. 37 Values below the stated reference ranges of AST and ALT can be seen in normal populations. Clinical correlation is suggested. 38 Reference Guidelines*: Desirable: ........... < 200 mg/dL Borderline High: ..... 200-239 mg/dL High: ................ >=240 mg/dL * The National Cholesterol Education Program (NCEP) 39 Reference Guidelines*: Normal: ............. < 150 mg/dL Borderline High: .... 150-199 mg/dL High: ............... 200-499 mg/dL Very High: .......... > 500 mg/dL * Source: National Cholesterol Education Program (NCEP) 40 Reference Guidelines*: Low HDL: ..... < 40 mg/dL Normal: ..... 40-60 mg/dL Desirable: ... > 60 mg/dL *The National Cholesterol Education Program(NCEP) 41 Reference Guidelines*: Optimal:........... <100 mg/dL Near Optimal....... 100-129 mg/dL Borderline High.... 130-159 mg/dL High............... 160-189 mg/dL Very High.......... >=190 mg/dL * Source: National Cholesterol Education Program (NCEP) 42 Vitamin D deficiency has been defined by the [place] [employer] and an Endocrine Society practice guideline as a level of serum 25-OH vitamin D less than 20 ng/mL (1,2). The Endocrine Society went on to further define vitamin D insufficiency as a level between 21 and 29 ng/mL (2). 1. IOM ([place] [employer]). 2010. Dietary reference intakes for calcium and D. [place]: The National Academies Press. 2. Hung MF, Kana [place], Petrona ALVARADO, et al. Evaluation, treatment, and prevention of vitamin D deficiency: an Endocrine Society clinical practice guideline. JCEM. 2010; 96(7):1911-30. Performed at: RN - [facility] [address] [id number] [employer] Maker: Karine Guo MD, Phone: [phone] 43 Reference Guidelines*: Desirable: ........... < 200 mg/dL Borderline High: ..... 200-239 mg/dL High: ................ >=240 mg/dL * The National Cholesterol Education Program (NCEP) 44 Reference Guidelines*: Normal: ............. < 150 mg/dL Borderline High: .... 150-199 mg/dL High: ............... 200-499 mg/dL Very High: .......... > 500 mg/dL * Source: National Cholesterol Education Program (NCEP) 45 Reference Guidelines*: Low HDL: ..... < 40 mg/dL Normal: ..... 40-60 mg/dL Desirable: ... > 60 mg/dL *The National Cholesterol Education Program(NCEP) 46 Reference Guidelines*: Optimal:........... <100 mg/dL Near Optimal....... 100-129 mg/dL Borderline High.... 130-159 mg/dL High............... 160-189 mg/dL Very High.......... >=190 mg/dL * Source: National Cholesterol Education Program (NCEP) 47 Elevated levels of HbA1c suggest the need for more aggressive treatment of glycemia. The [place] Diabetes Association recommends that a primary goal of therapy should be a HbA1c of <7% and that physicians should re-evaluate the treatment regimen in patients with HbA1c values consistently >8%. 48 Reference Guidelines*: Desirable: ........... < 200 mg/dL Borderline High: ..... 200-239 mg/dL High: ................ >=240 mg/dL * The National Cholesterol Education Program (NCEP) 49 Reference Guidelines*: Normal: ............. < 150 mg/dL Borderline High: .... 150-199 mg/dL High: ............... 200-499 mg/dL Very High: .......... > 500 mg/dL * Source: National Cholesterol Education Program (NCEP) 50 Reference Guidelines*: Low HDL: ..... < 40 mg/dL Normal: ..... 40-60 mg/dL Desirable: ... > 60 mg/dL *The National Cholesterol Education Program(NCEP) 51 Reference Guidelines*: Optimal:........... <100 mg/dL Near Optimal....... 100-129 mg/dL Borderline High.... 130-159 mg/dL High............... 160-189 mg/dL Very High.......... >=190 mg/dL * Source: National Cholesterol Education Program (NCEP) 52 Elevated levels of HbA1c suggest the need for more aggressive treatment of glycemia. The [place] Diabetes Association recommends that a primary goal of therapy should be a HbA1c of <7% and that physicians should re-evaluate the treatment regimen in patients with HbA1c values consistently >8%. 53 Vitamin D deficiency has been defined by the [place] [employer] and an Endocrine Society practice guideline as a level of serum 25-OH vitamin D less than 20 ng/mL (1,2). The Endocrine Society went on to further define vitamin D insufficiency as a level between 21 and 29 ng/mL (2). 1. IOM ([place] [employer]). 2010. Dietary reference intakes for calcium and D. [place]: The National Academies Press. 2. Hung MF, Kana ABBASI, Petrona ALVARADO, et al. Evaluation, treatment, and prevention of vitamin D deficiency: an Endocrine Society clinical practice guideline. JCEM. 2010; 96(7):1911-30. Performed at: RN - [facility] [address] [id number] [employer] Maker: Karine Guo MD, Phone: [phone] 54 Note: Persistent reduction for 3 months or more in an eGFR <60 mL/min/1.73 m2 defines CKD. Patients with eGFR values >/=60 mL/min/1.73 m2 may also have CKD if evidence of persistent proteinuria is present. The original MDRD equation for estimated GFR is not valid for patients less than 18 years of age. Additional information may be found at www.kdoqi.org. 55 Values below the stated reference ranges of AST and ALT can be seen in normal populations. Clinical correlation is suggested. Procedures Date Code Description Status 03/12/2018 33293 Colonoscopy Completed 03/07/2018 [id number] Mammogram Completed 02/13/2018 21813 Eye Exam New Patient Comprehensive Completed 02/03/2018 85651 Destruct-Skin Tags/Lesions-Local Anesthesia- 2-14 Completed Lesions 02/03/2018 45868 Destruct-Skin Tags/Lesions-Local Anesthesia - First Completed Lesion 06/28/201761709 Asp./Injection major joint Completed 03/05/2017 [id number] Mammogram Completed 08/13/2016 56479 Asp./Injection major joint Completed 02/28/2016 [id number] Mammogram Completed 01/06/2016 [id number] Mammogram Completed 01/06/2016 [id number] Bone Mineral Density Test Completed 09/19/2015 97236 Removal Skin Tags/Multi To 15 Completed 09/19/2015 24134 Remove Impact Cerumen Irrigati Completed 05/14/2014 82766 EKG-Tracing And Report Completed 05/07/2014 88836 ECHO Transthoracic Inc Performance Continuous Completed Electrocardio 05/07/2014 25292 Holter Monitor 24HR Inter/Report Completed 05/05/2014 47562 Echocardiogram Complete Completed 11/13/2012 19027 EKG Interpretation And Report Only Completed 05/17/2011 [id number] Colonoscopy Completed 09/10/2008 14358 Radiology, Wrist Two Views Completed 12/08/2007 17239 Stress Test Physician Super Only Completed 12/08/2007 48891 Stress Test Interpre And Report Only Completed 12/06/2007 62206 EKG Interpretation And Report Only Completed 05/21/2006 [id number] Colonoscopy Completed 03/26/2002 [id number] Colonoscopy Completed Encounters Type Date Location Provider Dx Diagnosis Office Visit 07/29/2018 4:00p Urology Carlos Chun M.D. N20.0 Calculus of kidney C64.2 Malignant neoplasm of left kidney, except renal pelvis Office Visit 03/18/2018 4:00p Urology Carlos Chun C64.2 Malignant neoplasm M.D. of left kidney, except renal pelvis N20.0 Calculus of kidney Office Visit 02/13/2018 9:00a Trent George MD C64.2 Malignant neoplasm of left kidney, except renal pelvis Z86.010 Personal history of colonic polyps Office Visit 02/03/2018 9:00a Family Medicine Julianne Lester, Z00.00 Encntr for Sb CABRERA MD general adult medical exam w/o abnormal findings C64.2 Malignant neoplasm of left kidney, except renal pelvis E11.65 Type 2 diabetes mellitus with hyperglycemia E78.5 Hyperlipidemia, unspecified L82.1 Other seborrheic keratosis L91.8 Other hypertrophic disorders of the skin Office Visit 12/03/2017 4:00p Urology Carlos Chun, C64.2 Malignant neoplasm M.D. of left kidney, except renal pelvis N20.0 Calculus of kidney Office Visit 08/12/2017 4:00p Family Lester, Z01.818 Encounter for other Medicine Sb Whitaker MD preprocedural RD examination D41.02 Neoplasm of uncertain behavior of left kidney E11.65 Type 2 diabetes mellitus with hyperglycemia E78.5 Hyperlipidemia, unspecified N20.0 Calculus of kidney Office Visit 08/06/2017 4:15p Orthopaedic Office Lindy Brasher M25.511 Pain in right S., RPAC shoulder M75.31 Calcific tendinitis of right shoulder Office Visit 08/02/2017 1:30p Urology Carlos Chun D41.02 Neoplasm of M.D. uncertain behavior of left kidney N20.0 Calculus of kidney Office Visit 08/01/2017 8:30a Urology Carlos Chun M.D. N20.0 Calculus of kidney D41.02 Neoplasm of uncertain behavior of left kidney Office Visit 06/28/2017 8:30a Orthopaedic Office Lindy Brasher M25.511 Pain in right S., RPAC shoulder M75.31 Calcific tendinitis of right shoulder Office Visit 04/25/2017 9:45a Family Malina Lester, E11.65 Type 2 diabetes Sb Whitaker MD mellitus with hyperglycemia E78.5 Hyperlipidemia, unspecified H92.09 Otalgia, unspecified ear E55.9 Vitamin D deficiency, unspecified Office Visit 09/10/2016 3:00p Jluianne Lee, Z00.01 Encounter for Sb CABRERA MD general adult medical exam w abnormal findings M67.442 Ganglion, left hand E78.5 Hyperlipidemia, unspecified E11.65 Type 2 diabetes mellitus with hyperglycemia N20.0 Calculus of kidney Z87.81 Personal history of (healed) traumatic fracture H92.09 Otalgia, unspecified ear E55.9 Vitamin D deficiency, unspecified Office Visit 02/06/2016 4:00p Family Malina Lester E11.65 Type 2 diabetes Sb Whitaker MD mellitus with hyperglycemia E78.5 Hyperlipidemia, unspecified Z86.010 Personal history of colonic polyps Office Visit 09/19/2015 3:00p Family Medicine Julianne Lester, Z00.00 Encntr for Sb CABRERA MD general adult medical exam w/o abnormal findings E78.5 Hyperlipidemia, unspecified E11.65 Type 2 diabetes mellitus with hyperglycemia Z86.010 Personal history of colonic polyps L91.8 Other hypertrophic disorders of the skin H61.21 Impacted cerumen, right ear L82.0 Inflamed seborrheic keratosis Office Visit 05/14/2014 3:05p Cardiology Office Ephraim Bhatia MD 786.50 Pain Chest Unspec 427.60 Premature Beats Unspec 785.1 Palpitations Office Visit 05/06/2014 10:59a Cardiology Office Ephraim Bhatia MD 786.50 Pain Chest Unspec 785.1 Palpitations Office Visit 09/10/2008 11:30a Orthopaedic Office Remedios Jolley 813.44 FX Radius W/ AMD [place] Lower End Closed E885.9 Fall From Other Slipping,Tripping, Or Stumbling E849.0 Accident Home Plan of Treatment Future Appointment(s):01/27/2019 3:45 pm - Carlos Chun M.D. at [id number] 10:30 am - Trent Allen MD at [id number]/06/2019 - Julianne Lester MDK57.32 Diverticulitis of large intestine without perforation or abscess without bleedingComments:hand out from Up To Date given;resume normal activitiesFollow up:4 MO: CPE, NO PAPN20.0 Calculus of kidneyComments:feeling well now, f/ u with kopisicfoC07.9 Type 2 diabetes mellitus without complicationsNew Labs:Glycohemoglobin A1c, Ordered: 09/10/18Calcium, Ordered: LDL Cholesterol Profile, Ordered: 09/10/18Comments:CHECK AIC, CALCIUM AND [id number] Vitamin D deficiency, unspecifiedNew Labs:Glycohemoglobin A1c, Ordered: 09/10/18Calcium, Ordered: 09/10/18LDL Cholesterol Profile, Ordered: 12/24Comments:CHECK LEVEL AND ADJUST IF NEEDED.
[2018-10-10 11:54] VITALS: BP 131/77
--- NOTE | 2018-10-10 12:12 | UC ---
Complaint Female HPI - HPI Summary HPI Summary: 63-year-old female presents with onset of suprapubic pressure, dysuria, frequency, and urgency this morning. Reports history of kidney stones however states symptoms are different from her episodes in the past. Denies fever, chills, abdominal pain, back or flank pain, hematuria, vaginal discharge, or abnormal vaginal bleeding. - History Of Current Complaint Chief Complaint: UCGU Stated Complaint: URINARY Time Seen by Provider: 10/10/18 12:03 Hx Obtained From: Patient Hx Last Menstrual Period: 2000 Pain Intensity: 6 - Allergies/Home Medications Allergies/Adverse Reactions: Allergies Allergy/AdvReac Type Severity Reaction Status Date / Time Sulfa (Sulfonamide Allergy Hives Verified 10/10/18 11:47 Antibiotics) Home Medications: Home Medications Cholecalciferol TAB* [Vitamin D TAB*] 2,000 units PO DAILY 10/10/18 [History Confirmed 10/10/18] Simvastatin [Zocor] 20 mg PO 10/10/18 [History] metFORMIN* [Glucophage 500 MG TAB *] 500 mg PO DAILY 10/10/18 [History Confirmed 10/10/18] PMH/Surg Hx/FS Hx/Imm Hx Endocrine History: Diabetes, Dyslipidemia - Surgical History Surgical History: Yes Surgery Procedure, Year, and Place: hysterectomy 2000,. ear tube on left, Both ears tubes 04/23. Cyst removal left kidney - cancer - Family History Known Family History: Positive: Hypertension Negative: Diabetes - Social History Occupation: Employed Part-time Lives: Alone Alcohol Use: None Substance Use Type: None Smoking Status (MU): Never Smoked Tobacco - Immunization History Most Recent Influenza Vaccination: April 2016 Review of Systems All Other Systems Reviewed And Are Negative: Yes Constitutional: Negative: Fever, Chills Skin: Negative: Rash Respiratory: Negative: Shortness Of Breath, Cough Cardiovascular: Negative: Palpitations, Chest Pain Gastrointestinal: Negative: Abdominal Pain, Vomiting, Diarrhea, Nausea Genitourinary: Positive: Dysuria, Frequency, Urgency. Negative: Hematuria, Vaginal/Penile Discharge, Abnormal Bleeding Musculoskeletal: Positive: Negative Neurological: Positive: Negative Is Patient Immunocompromised?: No Physical Exam - Summary Physical Exam Summary: GENERAL APPEARANCE: Well developed, well nourished, alert and cooperative, and appears to be in no acute distress. CARDIAC: Normal S1 and S2. No S3, S4 or murmurs. Rhythm is regular. There is no peripheral edema, cyanosis or pallor. Extremities are warm and well perfused. Capillary refill is less than 2 seconds. Peripheral pulses intact. LUNGS: Clear to auscultation without rales, rhonchi, wheezing or diminished breath sounds. ABDOMEN: Positive bowel sounds. Soft, nondistended. Mild surpapubic tenderness. No guarding or rebound. No masses or hepatosplenomegally. No CVA tenderness. MUSKULOSKELETAL: ROM intact to all extremities. No joint erythema or tenderness. Normal muscular development. Normal gait. SKIN: Skin normal color, texture and turgor with no lesions or eruptions. Triage Information Reviewed: Yes Vital Signs: Initial Vital Signs Temp 97.6 F 10/10/18 11:49 Pulse 82 10/10/18 11:49 Resp 21 10/10/18 11:49 BP 131/77 10/10/18 11:49 Pulse Ox 99 10/10/18 11:49 Vital Signs Reviewed: Yes Complaint Female Dx - Course Course Of Treatment: 63-year-old female presents with onset of suprapubic pressure, dysuria, frequency, and urgency this morning. Reports history of kidney stones however states symptoms are different from her episodes in the past. Denies fever, chills, abdominal pain, back or flank pain, hematuria, vaginal discharge, or abnormal vaginal bleeding. Afebrile. Mildly hypertensive otherwise vital signs stable. Exam was unremarkable except for some mild suprapubic discomfort. [id number] urinalysis showed 3+ blood, 1+ leukocyte esterase, and 1+ protein. Urine culture is pending. We will treat for an acute UTI with Macrobid 1 tablet twice a day 5 days as well as Pyridium 100 mg 3 times a day 2 days to help with the discomfort. She is to follow-up with her primary care provider in 3 days if symptoms do not improve. Describes urgency and warning symptoms reviewed with the patient. Verbalizes understanding and agrees with plan of care. - Differential Dx/Diagnosis Differential Diagnosis/HQI/PQRI: Renal Colic, Ureteral Stone, Urinary Tract Infection Provider Diagnosis: UTI (urinary tract infection), Elevated blood pressure reading Discharge - Sign-Out/Discharge Documenting (check all that apply): Patient Departure All imaging exams completed and their final reports reviewed: No Studies - Discharge Plan Condition: Stable Disposition: HOME Prescriptions: Nitrofurantoin Monohyd/M-Cryst [Macrobid 100 mg Capsule] 100 mg PO BID #10 cap Phenazopyridine TAB* [Pyridium 100 mg TAB*] 100 mg PO TID #6 tab Patient Education Materials: Urinary Tract Infection in Women (ED) Forms: *Work Release Referrals: Julianne Lester MD [Primary Care Provider] - 3 Days (If no improvement.) Additional Instructions: Your urine test in the clinic today is suggestive of a urinary tract infection. We will start you on an antibiotic to treat for the infection. We will also send a urine culture today to see what bacteria grow out and make sure the antibiotic you were prescribed is appropriate to treat the infection. It will take 48-72 hours to get these results. We will contact you if there is any change in your treatment plan. Start Macrobid twice a day for 5 days. Take Pyridium 1 tablet every 8 hours for next 2 days to help with the discomfort. This medication will turn your urine an orange color. Drink plenty of fluids. To help prevent urinary tract infections: 1) Be sure to wipe from front to back. 2) Avoid taking bubble baths. Follow up with your primary care provider in 3 days if symptoms persist. Your blood pressure was mildly elevated in the clinic today. You should have this rechecked by your primary care provider. Seek immediate medical attention in the emergency room if you develop fever greater than 100.5 F, have severe abdominal pain, persistent vomiting, or any worsening of symptoms. - Billing Disposition and Condition Condition: STABLE Disposition: Home - Attestation Statements Provider Attestation: Per institutional requirements, I have reviewed the chart, however, I was not consulted specifically or made aware of this patient by the midlevel provider. I did not personally evaluate, interact with , or disposition this patient.
--- NOTE | 2018-10-13 07:18 | UC ---
- Progress Note Progress Note: Urine culture from October 10, 2018 comes back as mixed tahmina possible contamination suggest recent admission. Patient was started on Macrobid 100 mg by mouth twice a day. Nursing to call patient and if patient is improving she was just follow-up with her primary care doctor and continue the antibiotic. If she is not improving or getting worse she needs reevaluation either by primary care us our emergency department. Course/Dx - Diagnoses Provider Diagnoses: UTI (urinary tract infection), Elevated blood pressure reading Discharge - Sign-Out/Discharge Documenting (check all that apply): Patient Departure All imaging exams completed and their final reports reviewed: No Studies - Discharge Plan Condition: Stable Disposition: HOME Prescriptions: Nitrofurantoin Monohyd/M-Cryst [Macrobid 100 mg Capsule] 100 mg PO BID #10 cap Phenazopyridine TAB* [Pyridium 100 mg TAB*] 100 mg PO TID #6 tab Patient Education Materials: Urinary Tract Infection in Women (ED) Forms: *Work Release Referrals: Julianne Lester MD [Primary Care Provider] - 3 Days (If no improvement.) Additional Instructions: Your urine test in the clinic today is suggestive of a urinary tract infection. We will start you on an antibiotic to treat for the infection. We will also send a urine culture today to see what bacteria grow out and make sure the antibiotic you were prescribed is appropriate to treat the infection. It will take 48-72 hours to get these results. We will contact you if there is any change in your treatment plan. Start Macrobid twice a day for 5 days. Take Pyridium 1 tablet every 8 hours for next 2 days to help with the discomfort. This medication will turn your urine an orange color. Drink plenty of fluids. To help prevent urinary tract infections: 1) Be sure to wipe from front to back. 2) Avoid taking bubble baths. Follow up with your primary care provider in 3 days if symptoms persist. Your blood pressure was mildly elevated in the clinic today. You should have this rechecked by your primary care provider. Seek immediate medical attention in the emergency room if you develop fever greater than 100.5 F, have severe abdominal pain, persistent vomiting, or any worsening of symptoms. - Billing Disposition and Condition Condition: STABLE Disposition: Home
== END 2018-10-10 12:25 | disposition home or self-care (01) ==
LOC: UCCORT 11:27
DX: N39.0 Urinary tract infection, site not specified (principal); R03.0 Elevated blood-pressure reading, without diagnosis of hypertension; E11.9 Type 2 diabetes mellitus without complications; Z79.84 Long term (current) use of oral hypoglycemic drugs; Z88.2 Allergy status to sulfonamides
CPT/HCPCS: 81003; 87086; 99212; G0463